=== PATIENT | female | born 1965 | race Caucasian/White ===

== ENCOUNTER 2018-09-07 17:50 | Emergency (ER) | payer MEDICARE, OTHER ==
[~2018-09-07] VITALS: Ht 157.5 cm; Wt 87.5 kg
[2018-09-07] MEDS ORDERED: LOVASTATIN20 MG PO (18:05)
[2018-09-07] MEDS ORDERED: METFORMIN HCL1000 MG PO (18:05)
[2018-09-07] MEDS ORDERED: DIVALPROEX SOD125 MG PO (18:06)
[2018-09-07] MEDS ORDERED: ESCITALOPRAM OXA5 MG PO (18:06)
[2018-09-07] MEDS ORDERED: LISINOPRIL10 MG PO (18:06)
[2018-09-07] MEDS ORDERED: OMEPRAZOLE40 MG PO (18:07)
[2018-09-07] MEDS ORDERED: METOPROLOL SUCC25 MG PO (18:07)
[2018-09-07] MEDS ORDERED: PREDNISONE20 MG PO (23:09)
== END 2018-09-07 23:26 | disposition home or self-care (01) ==
LOC: ED 17:50
DX: R22.0 Localized swelling, mass and lump, head (principal); R51 Headache; F43.10 Post-traumatic stress disorder, unspecified; E11.9 Type 2 diabetes mellitus without complications; F41.9 Anxiety disorder, unspecified; I25.2 Old myocardial infarction; I12.9 Hypertensive chronic kidney disease with stage 1 through stage 4 chronic kidney disease, or unspecified chronic kidney disease; N18.9 Chronic kidney disease, unspecified; K21.9 Gastro-esophageal reflux disease without esophagitis; F17.200 Nicotine dependence, unspecified, uncomplicated; Z88.0 Allergy status to penicillin; Z88.8 Allergy status to other drugs, medicaments and biological substances; Z91.048 Other nonmedicinal substance allergy status; Z88.6 Allergy status to analgesic agent; Z88.5 Allergy status to narcotic agent; Z79.899 Other long term (current) drug therapy; Z79.84 Long term (current) use of oral hypoglycemic drugs
CPT/HCPCS: 70450; 70496; 70498; 80053; 80164; 85025; 85610; 85730; 99284-25; J7512; Q9967

== ENCOUNTER 2018-12-24 12:07 | Emergency (ER) | payer MEDICARE ==
[~2018-12-24] VITALS: Ht 157.5 cm; Wt 87.5 kg
--- OUTSIDE RECORDS SUMMARY | ~2018-12-24 | XMS | Clinical Summary ---
Demographics + + + | Address | [address] | | | [place] [address] | + + + | Home Phone | | + + + | Preferred Language | Unknown | + + + | Marital Status | Unknown | + + + | Yazidism Affiliation | Unknown | + + + | Race | Unknown | + + + | Ethnic Group | Unknown | + + + Author + + + | Author | [facility] | + + + | Organization | [facility] | + + + | Address | Unknown | + + + | Phone | Unavailable | + + + Care Team Providers + +------+ + | Care Vp Talent Management Name | Role | Phone | + +------+ + | Gretel Cheema MD | PP | | + +------+ + Allergies Not on File Current Medications Not on file Active Problems Not on file Encounters +--------+ + + + + | Date | Type | Specialty | Care Team | Description | +--------+ + + + + | 10/13/ | Documentati | | Jose Alfredo Kendrajhon | Other ([facility] | | 2019 | on Only | | Neuroscience | Neurology records | | | | | | recv'd) | +--------+ + + + + | 10/08/ | Documentati | | Susanna Tracy, | | | 2018 | on Only | | MD | | +--------+ + + + + from Last 3 Months Social History + +-------+ +--------+------+ | Tobacco [...] +------+-------+ + | MEDICARE | MEDICA | [id number] | | | [address] | | | RE | | | | [place] [address] | | | IP-OP | | | | | + +--------+ +------+-------+ + | MEDICAID | MEDICA | [id number] | | | [address] | | | ID | | | | [place] | | | [place] | | | | [address] | + +--------+ +------+-------+ + + +--------+ +--------+ + + | Guarantor Name | Accoun | Relation to | Date | Phone | Billing Address | | | t Type | Patient | of | | | | | | | | | | + +--------+ +--------+ + + | JOSE ESCOBAR | Person | Self | [birth year] | Home: | [address] | | | al/Fam | | 1966 | [phone] [place] [address] | | | guille | | | [phone] | | + +--------+ +--------+ + +"
--- OUTSIDE RECORDS SUMMARY | ~2018-12-24 | XMS | Encounter Summary ---
Demographics + + + | Address | [address] | | | [place] [address] | + + + | Home Phone | | + + + | Preferred Language | Unknown | + + + | Marital Status | Unknown | + + + | Roman Catholic Affiliation | Unknown | + + + | Race | Unknown | + + + | Ethnic Group | Unknown | + + + Author + + + | Author | [facility] | + + + | Organization | [facility] | + + + | Address | Unknown | + + + | Phone | Unavailable | + + + Care Team Providers + +------+ + | Care Wheelchair Driver Name | Role | Phone | + +------+ + | Gretel Cheema MD | PCP | | + +------+ + Encounter Details +--------+ + + + + | Date | Type | Department | Care Team | Description | +--------+ + + + + | 10/08/ | Documentati | [facility] | Susanna Tracy, | | | 2019 | on Only | [facility] Center | [address] | | | | | [address] | [address] [place] | | | | | [place] | [address] | | | | | [address] | | | | | | [phone] | | | +--------+ + + + + Social History + +-------+ +--------+------+ | Tobacco [...] on file | | + + + as of this encounter Progress Notes Elvie Cottrell - 10/08/2018 11:30 AM PSTNeurology referralin this encounter Plan of Treatment Not on fileas of this encounter Visit Diagnoses Not on filein this encounter"
--- OUTSIDE RECORDS SUMMARY | ~2018-12-24 | XMS | Encounter Summary ---
Demographics + + + | Address | [address] | | | [place] [address] | + + + | Home Phone | | + + + | Preferred Language | Unknown | + + + | Marital Status | | + + + | Gnosticist Affiliation | 1027 | + + + | Race | Unknown | + + + | Ethnic Group | Unknown | + + + Author + + + | Author | [facility] | | | and [place] | + + + | Organization | [facility] | | | and [place] | + + + | Address | Unknown | + + + | Phone | Unavailable | + + + Support + + + + + | Name | Relationship | Address | Phone | + + + + + | Susy Escobar | ECON | [address] | | | | | [place] | | | | | [address] | | + + + + + Care Team Providers + +------+ + | Care Wine Blender Name | Role | Phone | + +------+ + PCP | Unavailable | + +------+ + Encounter Details +--------+ + + + + | Date | Type | Department | Care Team | Description | +--------+ + + + + | 10/15/ | Imaging | [facility] | Provider, | | | 2019 | Exam | MED CTR EXTERNAL | MD [address]any [address] | | | | | IMAGING | [address] | | | | | [phone] | [place] [address] | | +--------+ + + + + [...] + + documented in this encounter Results CT Chest wo Contrast (10/15/2018 11:40 PST) [...] + documented in this encounter Visit Diagnoses Not on filedocumented in this encounter"
--- OUTSIDE RECORDS SUMMARY | ~2018-12-24 | XMS | Encounter Summary ---
Demographics + + + | Address | [address] | | | [place] [address] | + + + | Home Phone | | + + + | Preferred Language | Unknown | + + + | Marital Status | | + + + | Cheondoism Affiliation | 1027 | + + + | Race | Unknown | + + + | Ethnic Group | Unknown | + + + Author + + + | Author | [facility] | | | and [place] | + + + | Organization | [facility] | | | and [place] | + + + | Address | Unknown | + + + | Phone | Unavailable | + + + Support + + + + + | Name | Relationship | Address | Phone | + + + + + | Susy Escobar | ECON | [address] | | | | | [place] | | | | | [address] | | + + + + + Care Team Providers + +------+ + | Care Employment Representative Name | Role | Phone | + +------+ + | Gretel Cheema MD | PCP | | + +------+ + Encounter Details +--------+ + + + + | Date | Type | Department | Care Team | Description | +--------+ + + + + | 12/04/ | Hospital | [facility] | Gretel Cheema | Thyroid nodule | | 2019 | Encounter | MED CTR ULTRASOUND | MD K[address] | | | | | [address] | [place] | | | | | [place] | [place] | | | | | [address] | [address] | | | | | [phone] | [phone] | | | | | | | [...] Destin Cedeno MD PATIENT NAME: JOSE ESCOBAR [facility] | | JASVIR GENDER: Ester : [...] nodule, colloid nodule etc.) | | | ([place] category 2) DESCRIPTION: More than six well [...] | LABORATORY: Technical preparation was performed by [facility] | | | [address] [place] [place] [address] and [facility] | | | Diagnostics, [place] [address] [place] [address]. | | | Professional interpretation was performed by [facility] - . | | | [facility] - [address] [place] [address] | | | (Superintendent Logging: Yariel Sanches MD.; IA#:[id number]).8 | | | Diagnostician: Toma NAVARRETE ([facility]) Channeling Machine Operator | | | Diagnostician: Yariel Sanches MD [...]
--- OUTSIDE RECORDS SUMMARY | ~2018-12-24 | XMS | Encounter Summary ---
Demographics + + + | Address | [address] | | | [place] [address] | + + + | Home Phone | | + + + | Preferred Language | Unknown | + + + | Marital Status | | + + + | Scientology Affiliation | 1027 | + + + | Race | Unknown | + + + | Ethnic Group | Unknown | + + + Author + + + | Author | [facility] | | | and [place] | + + + | Organization | [facility] | | | and [place] | + + + | Address | Unknown | + + + | Phone | Unavailable | + + + Support + + + + + | Name | Relationship | Address | Phone | + + + + + | Susy Escobar | ECON | [address] | | | | | [place] | | | | | [address] | | + + + + + Care Team Providers + +------+ + | Care Distributor Sales Consultant Name | Role | Phone | + +------+ + PCP | Unavailable | + +------+ + Encounter Details +--------+ + + + + | Date | Type | Department | Care Team | Description | +--------+ + + + + | 10/15/ | Imaging | [facility] | Provider, | | | 2019 | Exam | MED CTR EXTERNAL | MD [address] | | | | | IMAGING | [address] | | | | | [phone] | [place] [address] | | +--------+ + + + + [...] + documented in this encounter Results US Head Neck Soft Tissue (10/15/2018 12:10 [...]
--- OUTSIDE RECORDS SUMMARY | ~2018-12-24 | XMS | Encounter Summary ---
Demographics + + + | Address | [address] | | | [place] [address] | + + + | Home Phone | | + + + | Preferred Language | Unknown | + + + | Marital Status | Unknown | + + + | Islam Affiliation | Unknown | + + + | Race | Unknown | + + + | Ethnic Group | Unknown | + + + Author + + + | Author | [facility] | + + + | Organization | [facility] | + + + | Address | Unknown | + + + | Phone | Unavailable | + + + Care Team Providers + +------+ + | Care Lehr Tender Name | Role | Phone | + [...] [address] | | | | | [address] | [address] [place] | | | | | [place] | [address] | | | | | [address] | | | | | | [phone] | | | +--------+ + + + [...]
--- OUTSIDE RECORDS SUMMARY | ~2018-12-24 | XMS | Clinical Summary ---
Demographics + + + | Address | [address] | | | [place] [address] | + + + | Home Phone | | + + + | Preferred Language | Unknown | + + + | Marital Status | | + + + | Amish Affiliation | 1027 | + + + | Race | Unknown | + + + | Ethnic Group | Unknown | + + + Author + + + | Author | [facility] | | | and [place] | + + + | Organization | [facility] | | | and [place] | + + + | Address | Unknown | + + + | Phone | Unavailable | + + + Support + + + + + | Name | Relationship | Address | Phone | + + + + + | Susy Escobar | ECON | [address] | | | | | [place] | | | | | [address] | | + + + + + Care Team Providers + +------+ + | Care Painter Chassis Name | Role | Phone | + [...] + + | Performing | Address | City/State/[facility] | Phone Number | | Organization [...] Cedeno MD PATIENT NAME: JOSE ESCOBAR | [place] PATHOLOGY | | JASVIR GENDER: Ester : [...] nodule, colloid nodule etc.) | | | ([place] category 2) DESCRIPTION: More than six well [...] | LABORATORY: Technical preparation was performed by [facility] | | | [address] [place] [address] and [employer] | | | [facility] [address] [place] [address]. | | | Professional interpretation was performed by [facility]. | | | [place] [address] [place] [address] | | | (Side Puller: Yariel Sanches MD.; CLIA#:[id number]).8 | | | Diagnostician: Toma NAVARRETE ([facility]) Disability Attorney | | | Diagnostician: Yariel Sanches MD [...] +--------+ +---------+--------+ | MEDICARE | MEDICA | [id number] | 03/08/20 | [phone] | | Medica | | | RE | | 17-Pre | 5 | | re | | | PART A | | sent | | | | | | AND B | | | | | | + +--------+ +--------+ +---------+--------+ | MEDICAID [place] | MEDICA | [id number] | | [phone] | | Medica | [...] Person | Self | [birth year] | | [address] | | | verena/Yuriy | | 1966 | [phone] | [place] | | | guille | | | 7 ([place]) | [address] | + +--------+ +--------+ + + Advance Directives Patient has advance care planning documents on file. For more information, please contact:[facility] [place] [address]"
--- OUTSIDE RECORDS SUMMARY | ~2018-12-24 | XMS | Encounter Summary ---
Demographics + + + | Address | [address] | | | [place] [address] | + + + | Home Phone | | + + + | Preferred Language | Unknown | + + + | Marital Status | | + + + | Restorationism Affiliation | 1027 | + + + | Race | Unknown | + + + | Ethnic Group | Unknown | + + + Author + + + | Author | [facility] | | | and [place] | + + + | Organization | [facility] | | | and [place] | + + + | Address | Unknown | + + + | Phone | Unavailable | + + + Support + + + + + | Name | Relationship | Address | Phone | + + + + + | Susy Escobar | ECON | [address] | | | | | [place] | | | | | [address] | | + + + + + Care Team Providers + +------+ + | Care Scalloper Name | Role | Phone | + +------+ + PCP | Unavailable | + +------+ + Encounter Details +--------+ + + + + | Date | Type | Department | Care Team | Description | +--------+ + + + + | 10/15/ | Imaging | [facility] | Provider, | | | 2019 | Exam | MED CTR EXTERNAL | MD [address] | | | | | IMAGING | [address] | | | | | [phone] | [place] [address] | | +--------+ + + + + [...]
--- OUTSIDE RECORDS SUMMARY | ~2018-12-24 | XMS | Clinical Summary ---
Demographics + + + | Address | [address] | | | [place] [address] | + + + | Home Phone | | + + + | Preferred Language | Unknown | + + + | Marital Status | | + + + | Orthodoxy Affiliation | Unknown | + + + | Race | White | + + + | Ethnic Group | Not or | + + + Author + + + | Author | [facility] | + + + | Organization | [...] Team Providers + +------+ + | Care Athletic Events Scorer Name | Role | Phone | + +------+ + | Jese Simms | PP | Unavailable | | ASSISTANT PROFESSOR OF HISTORY | | | + +------+ + Source Comments [facility] is fully live on both EpicCare Ambulatory and EpicCare InPatient.[facility] Allergies + + + + + + [...] (Flu) | | | | | vaccination (#1) | 8 | | | + + + + + Results Not on filefrom Last 3 Months"
--- OUTSIDE RECORDS SUMMARY | ~2018-12-24 | XMS | Encounter Summary ---
Demographics + + + | Address | [address] | | | [place] [address] | + + + | Home Phone | | + + + | Preferred Language | Unknown | + + + | Marital Status | | + + + | Islam Affiliation | 1027 | + + + | Race | Unknown | + + + | Ethnic Group | Unknown | + + + Author + + + | Author | [facility] | | | and [place] | + + + | Organization | [facility] | | | and [place] | + + + | Address | Unknown | + + + | Phone | Unavailable | + + + Support + + + + + | Name | Relationship | Address | Phone | + + + + + | Susy Escobar | ECON | [address] | | | | | [place] | | | | | [address] | | + + + + + Care Team Providers + +------+ + | Care Radio Interference Expert Name | Role | Phone | + +------+ + | Gretel Cheema MD | PCP | | + +------+ + Encounter Details +--------+ + + + + | Date | Type | Department | Care Team | Description | +--------+ + + + + | 12/04/ | Hospital | [facility] | Gretel Cheema | Thyroid nodule | | 2019 | Encounter | MED CTR ULTRASOUND | MD [address] | | | | | [address] | [address] [place] | | | | | [place] [address] | [place] | | | | | [address] | [address] | | | | | [phone] | [phone] | | | | | | | [...] Destin Cedeno MD PATIENT NAME: JOSE ESCOBAR [facility] PATHOLOGY | | JASVIR GENDER: Ester : [...] nodule, colloid nodule etc.) | | | ([place] category 2) DESCRIPTION: More than six well [...] | LABORATORY: Technical preparation was performed by [facility] | | | [address] [place] [address] and [employer] | | | Diagnostics, [place] [address] [place] [address]. | | | Professional interpretation was performed by [facility] - . | | | [facility] - [address] [place] [address] | | | (Toe Pounder: Yariel Sanches MD.; IA#:[id number]).8 | | | Diagnostician: Toma NAVARRETE ([facility]) Filter Plant Operator | | | Diagnostician: Yariel Sanches [...]
--- OUTSIDE RECORDS SUMMARY | ~2018-12-24 | XMS | Encounter Summary ---
Demographics + + + | Address | [address] | | | [place] [address] | + + + | Home Phone | | + + + | Preferred Language | Unknown | + + + | Marital Status | | + + + | Sikh Affiliation | 1027 | + + + | Race | Unknown | + + + | Ethnic Group | Unknown | + + + Author + + + | Author | [facility] | | | and [place] | + + + | Organization | [facility] | | | and [place] | + + + | Address | Unknown | + + + | Phone | Unavailable | + + + Support + + + + + | Name | Relationship | Address | Phone | + + + + + | Susy Escobar | ECON | [address] | | | | | [place] | | | | | [address] | | + + + + + Care Team Providers + +------+ + | Care Enterer Name | Role | Phone | + +------+ + PCP | Unavailable | + +------+ + Encounter Details +--------+ + + + + | Date | Type | Department | Care Team | Description | +--------+ + + + + | 10/15/ | Imaging | [facility] | Provider, | | | 2019 | Exam | MED CTR EXTERNAL | MD [address] | | | | | IMAGING | [address] | | | | | [phone] | [place] [address] | | +--------+ + + + + [...]
--- OUTSIDE RECORDS SUMMARY | ~2018-12-24 | XMS | Clinical Summary ---
Demographics + + + | Address | [address] | | | [place] [address] | + + + | Home Phone | | + + + | Preferred Language | Unknown | + + + | Marital Status | | + + + | Roman Catholic Affiliation | 1027 | + + + | Race | Unknown | + + + | Ethnic Group | Unknown | + + + Author + + + | Author | [facility] | | | and [place] | + + + | Organization | [facility] | | | and [place] | + + + | Address | Unknown | + + + | Phone | Unavailable | + + + Support + + + + + | Name | Relationship | Address | Phone | + + + + + | Susy Escobar | ECON | [address] | | | | | [place] | | | | | [address] | | + + + + + Care Team Providers + +------+ + | Care Installment Account Checker Name | Role | Phone | + [...] + + | Performing | Address | City/State/[facility] | Phone Number | | Organization | [...] Cedeno MD PATIENT NAME: JOSE ESCOBAR | [place] [facility] | | JASVIR GENDER: Ester : [...] nodule, colloid nodule etc.) | | | ([place] category 2) DESCRIPTION: More than six well [...] | LABORATORY: Technical preparation was performed by [employer] [facility] | | | [address] [place] [address] and [employer] | | | [facility] [address] [place] [address]. | | | Professional interpretation was performed by [facility]. | | | [place] [address] [place] [address] | | | (Screw Machine Operator: Yariel Sanches MD.; CLIA#:[id number]).8 | | | Diagnostician: Toma NAVARRETE ([facility]) Geospatial Analyst | | | Diagnostician: Yariel Sanches MD [...] +--------+ +---------+--------+ | MEDICARE | MEDICA | [id number] | 03/08/20 | [phone] | | Medica | | | RE | | 17-Pre | 5 | | re | | | PART A | | sent | | | | | | AND B | | | | | | + +--------+ +--------+ +---------+--------+ | MEDICAID [place] | MEDICA | [id number] | | [phone] | | Medica | [...] Person | Self | [birth year] | | [address] | | | verena/Yuriy | | 1966 | [phone] | [place] | | | guille | | | 7 ([place]) | [address] | + +--------+ +--------+ + + Advance Directives Patient has advance care planning documents on file. For more information, please contact:[facility] [place] [address]"
--- OUTSIDE RECORDS SUMMARY | ~2018-12-24 | XMS | Clinical Summary ---
Demographics + + + | Address | [address] | | | [place] [address] | + + + | Home Phone | | + + + | Preferred Language | Unknown | + + + | Marital Status | Unknown | + + + | Orthodox Affiliation | Unknown | + + + | Race | Unknown | + + + | Ethnic Group | Unknown | + + + Author + + + | Author | [facility] [employer] | + + + | Organization | [facility] | + + + | Address | Unknown | + + + | Phone | Unavailable | + + + Care Team Providers + +------+ + | Care Brush Washer Name | Role | Phone | + [...] | | Jose Alfredo Kendrajhon | Other ([facility] | | 2019 | on Only | [...] +------+-------+ + | MEDICARE | MEDICA | [id number] | | | [address] | | | RE | | | | [place] [phone] | | | IP-OP | | | | | + +--------+ +------+-------+ + | MEDICAID | MEDICA | [id number] | | | [address] | | | ID | | | | [place] | | | [place] | | | | [address] | + +--------+ +------+-------+ + + +--------+ +--------+ + + | Guarantor Name | Accoun | Relation to | Date | Phone | Billing Address | | | t Type | Patient | of | | | | | | | | | | + +--------+ +--------+ + + | JOSE ESCOBAR | Person | Self | [birth year] | Home: | [address] | | | al/Fam | | 1966 | [phone] | [place] [address] | | | guille | | | [phone] | | + +--------+ +--------+ + +"
--- OUTSIDE RECORDS SUMMARY | ~2018-12-24 | XMS | Encounter Summary ---
Demographics + + + | Address | [address] | | | [place] [address] | + + + | Home Phone | | + + + | Preferred Language | Unknown | + + + | Marital Status | Unknown | + + + | Quaker Affiliation | Unknown | + + + | Race | Unknown | + + + | Ethnic Group | Unknown | + + + Author + + + | Author | [facility] | + + + | Organization | [facility] | + + + | Address | Unknown | + + + | Phone | Unavailable | + + + Care Team Providers + +------+ + | Care Show Worker Name | Role | Phone | + +------+ + | Gretel Cheema MD | PCP | | + +------+ + Reason for Visit +--------+ + | Reason | Comments | +--------+ + | Other | [facility] Neurology records recv'd | +--------+ + Encounter Details +--------+ + + + + | Date | Type | Department | Care Team | Description | +--------+ + + + + | 10/13/ | Documentati | Hattie | [place]attie | Other ([facility] | | 2019 | on Only | Neuroscience Center | Neuroscience 1100 | Neurology records | | | | [address] | [address] | recv'd) | | | | [place] [place], [place] | [place] [address] | | | | | [address] | [phone] | | | | | [phone] | | | +--------+ + + + [...] + as of this encounter Progress Notes Leyla Rome, CHIP UNLOADER - 10/13/2018 12:48 PM PSTRecords received gave to provider for rev iew and will send to scan when done.in this encounter Plan of Treatment Not on fileas of this encounter Visit Diagnoses Not on filein this encounter"
--- OUTSIDE RECORDS SUMMARY | ~2018-12-24 | XMS | Encounter Summary ---
Demographics + + + | Address | [address] | | | [place] [address] | + + + | Home Phone | | + + + | Preferred Language | Unknown | + + + | Marital Status | Unknown | + + + | Restoration Affiliation | Unknown | + + + | Race | Unknown | + + + | Ethnic Group | Unknown | + + + Author + + + | Author | [facility] | + + + | Organization | [facility] | + + + | Address | Unknown | + + + | Phone | Unavailable | + + + Care Team Providers + +------+ + | Care Ehr Trainer Name | Role | Phone | + +------+ + | Gretel Cheema MD | PCP | | + +------+ + Reason for Visit +--------+ + | Reason | Comments | +--------+ + | Other | [facility] Neurology records recv'd | +--------+ + Encounter Details +--------+ + + + + | Date | Type | Department | Care Team | Description | +--------+ + + + + | 10/13/ | Documentati | Hattie | [place] | Other ([facility] | | 2019 | on Only | Neuroscience Center | Neuroscience [address] | Neurology records | | | | [address] | [address] | recv'd) | | | | [address] [place], [place] | [place] [address] | | | | | [address] | [phone] | | | | | [phone] | | | +--------+ + + + [...] of this encounter Progress Notes Leyla Rome, DISTRICT CUSTOMS DIRECTOR - 10/13/2018 12:48 PM PSTRecords received gave to provider for rev iew and will send to scan when done.in this encounter Plan of Treatment Not on fileas of this encounter Visit Diagnoses Not on filein this encounter"
--- OUTSIDE RECORDS SUMMARY | ~2018-12-24 | XMS | Clinical Summary ---
Demographics + + + | Address | [address] | | | [place] [address] | + + + | Home Phone | | + + + | Preferred Language | Unknown | + + + | Marital Status | | + + + | Scientology Affiliation | Unknown | + + + | Race | White | + + + | Ethnic Group | Not or | + + + Author + + + | Author | [facility] | + + + | Organization | [...] Team Providers + +------+ + | Care Inspector Golf Ball Name | Role | Phone | + +------+ + | Jese Simms | PP | Unavailable | | BASIC SCIENCES DEAN | | | + +------+ + Source Comments ERUM is fully live on both EpicCare Ambulatory and EpicCare InPatient.[facility] Allergies + + + + + [...]
[~2018-12-24 12:07] MED LIST: DIVALPROEX SOD125 MG PO; ESCITALOPRAM OXA5 MG PO; LISINOPRIL10 MG PO; LOVASTATIN20 MG PO; METFORMIN HCL1000 MG PO; METOPROLOL SUCC25 MG PO; OMEPRAZOLE40 MG PO; PREDNISONE20 MG PO
[2018-12-24] MEDS ORDERED: NICOTINE GUM4 MG BUCCAL (13:01)
[2018-12-24] MEDS ORDERED: NORCO 5-325 TA1 EACH PO (14:07)
== END 2018-12-24 14:23 | disposition home or self-care (01) ==
LOC: ED 12:07
DX: S82.832A Other fracture of upper and lower end of left fibula, initial encounter for closed fracture (principal); S93.601A Unspecified sprain of right foot, initial encounter; F43.10 Post-traumatic stress disorder, unspecified; F41.9 Anxiety disorder, unspecified; I25.2 Old myocardial infarction; K21.9 Gastro-esophageal reflux disease without esophagitis; J45.909 Unspecified asthma, uncomplicated; F31.9 Bipolar disorder, unspecified; I12.9 Hypertensive chronic kidney disease with stage 1 through stage 4 chronic kidney disease, or unspecified chronic kidney disease; N18.9 Chronic kidney disease, unspecified; E11.22 Type 2 diabetes mellitus with diabetic chronic kidney disease; F17.200 Nicotine dependence, unspecified, uncomplicated; Z90.710 Acquired absence of both cervix and uterus; Z90.49 Acquired absence of other specified parts of digestive tract; Z88.0 Allergy status to penicillin; Z88.6 Allergy status to analgesic agent; Z88.1 Allergy status to other antibiotic agents; Z88.8 Allergy status to other drugs, medicaments and biological substances; Z91.09 Other allergy status, other than to drugs and biological substances; Z88.5 Allergy status to narcotic agent; Z79.84 Long term (current) use of oral hypoglycemic drugs; W18.31XA Fall on same level due to stepping on an object, initial encounter
CPT/HCPCS: 73590; 73610; 73630; 99283-25; 99406

== ENCOUNTER → 2019-01-11 | Emergency (ER) | payer MEDICARE ==
[~2019-01-11] VITALS: Ht 157.5 cm; Wt 87.5 kg
[~2019-01-11] MED LIST changes: +NICOTINE GUM4 MG BUCCAL; +NORCO 5-325 TA1 EACH PO
--- OUTSIDE RECORDS SUMMARY | ~2019-01-11 | XMS | Clinical Summary ---
Demographics + + + | Address | [address] | | | [place] [address] | + + + | Home Phone | | + + + | Preferred Language | Unknown | + + + | Marital Status | Unknown | + + + | Caodaism Affiliation | Unknown | + + + | Race | Unknown | + + + | Ethnic Group | Unknown | + + + Author + + + | Author | [facility] | + + + | Organization | [facility] | + + + | Address | Unknown | + + + | Phone | Unavailable | + + + Care Team Providers + +------+ + | Care Community Health Nursing Director Name | Role | Phone | + +------+ + | Gretel Cheema MD | PP | | + +------+ + Allergies Not on File Current Medications Not on file Active Problems Not on file Social History + +-------+ +--------+------+ | Tobacco Use | Types | Packs/Day | Years | Date | | | | | Used | | + +-------+ +--------+------+ | Never Assessed | | | | | + +-------+ +--------+------+ + + + | Sex Assigned at | Date Recorded | | | | + + + | Not on file | | + + + Plan of Treatment + + + + + | Health Maintenance | Due Date | Last Done | Comments | + + + + + | Cervical Cancer | | | | | Screening (Pap) | 4 | | | + + + + + | Vaccine: Zoster (1 | | | | | of 2) | 4 | | | + + + + + | Vaccine: Influenza | | | | | (Season Ended) | 9 | | | + + + + + | Vaccine: | | 08/16/2014 | | | Dtap/Tdap/Td (2 - | 4 | | | | Td) | | | | + + + + + Results Not on filefrom Last 3 Months Insurance + +--------+ +------+-------+ + | Payer | Benefi | Subscriber | Type | Phone | Address | | | t Plan | ID | | | | | | / | | | | | | | Group | | | | | + +--------+ +------+-------+ + | MEDICARE | MEDICA | [id number] | | | [address] | | | RE | | | | [place] [phone] | | | IP-OP | | | | | + +--------+ +------+-------+ + | MEDICAID | MEDICA | [id number] | | | [address] | | | ID | | | | [place] | | | [place] | | | | [phone] | + +--------+ +------+-------+ + + +--------+ +--------+ + + | Guarantor Name | Accoun | Relation to | Date | Phone | Billing Address | | | t Type | Patient | of | | | | | | | | | | + +--------+ +--------+ + + | JOSE ESCOBAR | Person | Self | [birth year] | Home: | [address] | | | verena/Yuriy | | 1966 | [phone] [place] [address] | | | guille | | | [phone] | | + +--------+ +--------+ + +"
--- OUTSIDE RECORDS SUMMARY | ~2019-01-11 | XMS | Encounter Summary ---
Demographics + + + | Address | [address] | | | [place] [address] | + + + | Home Phone | | + + + | Preferred Language | Unknown | + + + | Marital Status | | + + + | Restorationist Affiliation | 1027 | + + + | Race | Unknown | + + + | Ethnic Group | Unknown | + + + Author + + + | Author | [facility] | | | and [place] | + + + | Organization | [facility] | | | and [place] | + + + | Address | Unknown | + + + | Phone | Unavailable | + + + Support + + + + + | Name | Relationship | Address | Phone | + + + + + | Susy Escobar | ECON | [address] | | | | | [place] | | | | | [address] | | + + + + + Care Team Providers + +------+ + | Care County Agent Name | Role | Phone | + +------+ + | Gretel Cheema MD | PCP | | + +------+ + Encounter Details +--------+ + + + + | Date | Type | Department | Care Team | Description | +--------+ + + + + | 12/04/ | Hospital | [facility] | Gretel Cheema | Thyroid nodule | | 2019 | Encounter | MED CTR ULTRASOUND | MD [address] | | | | | [address] | [place] | | | | | [place] | [place] | | | | | [address] | [address] | | | | | [phone] | [phone] | | | | | | | | | | | | Rad, [facility] | | +--------+ + + + + [...] on file | | + + + + + + + | Job Start Date | Occupation | Industry | + + + + | Not on file | Not on file | Not on file | + + + + + + + + | Travel History | Travel Start | Travel End | + + + + + + | No recent travel history available. | + + documented as of this encounter Plan of Treatment Not on filedocumented as of this encounter Procedures + +--------+ + + + | Procedure Name | Priori | Date/Time | Associated Diagnosis | Comments | | | ty | | | | + +--------+ + + + | US GUIDED THYROID | Routin | 12/04/2018 | Thyroid nodule | Results for this | | FNA | e | 15:33 PDT | | procedure are in the | | | | | | results section. | + +--------+ + + + | MEDICAL CYTOLOGY | Routin | 12/04/2018 | | Results for this | | | e | 0:00 PDT | | procedure are in the | | | | | | results section. | + +--------+ + + + documented in this encounter Results US Guided Thyroid FNA (12/04/2018 15:33 PDT) + + | Specimen | + + | | + + + + + | Narrative | Performed At | + + + | US GUIDED THYROID FNA 12/04/2018 1:00 PM HISTORY: THYROID NODULE. | [facility] | | COMPARISON: Bilateral ultrasound 10/15/2018. PROTOCOL: After | | | explaining the risks and benefits of the procedure, informed consent | | | was obtained from the patient. Risks discussed included bleeding and | | | infection. Under ultrasound guidance, the dominant left inferior | | | nodule was localized. This region was cleansed and draped in the | | | usual sterile fashion. Lidocaine was used for local anesthesia. Using | | | 25-gauge 1.5 inch needles, biopsy was performed with 3 passes. The | | | samples were injected into CytoLyt solution. IMPRESSION - | | | Successful ultrasound-guided thyroid nodule biopsy. Dictated and | | | Signed by: Destin Cedeno MD Electronically signed: 12/04/2018 1:50 | | | PM | | + + + + + | Procedure Note | + + | Henry, Rad Results In - 12/04/2018 1534 PDT US GUIDED THYROID FNA 12/04/2018 1:00 PM | | | | HISTORY: THYROID NODULE. | | | | COMPARISON: Bilateral ultrasound 10/15/2018. | | | | PROTOCOL: | | After explaining the risks and benefits of the procedure, informed consent was | | obtained from the patient. Risks discussed included bleeding and infection. | | Under ultrasound guidance, the dominant left inferior nodule was localized. This | | region was cleansed and draped in the usual sterile fashion. Lidocaine was used | | for local anesthesia. Using 25-gauge 1.5 inch needles, biopsy was performed with | | 3 passes. The samples were injected into CytoLyt solution. | | | | IMPRESSION - | | Successful ultrasound-guided thyroid nodule biopsy. | | | | Dictated and Signed by: Destin Cedeno MD | | Electronically signed: 12/04/2018 1:50 PM | + + + +---------+ + + | Performing | Address | City/State/Zipcode | Phone Number | | Organization | | | | + +---------+ + + | [facility] | | | | + +---------+ + + Medical Cytology (12/04/2018 0:00 PDT) + + | Specimen | + + | Tissue | + + + + + | Narrative | Performed At | + + + | ORDERING PHYSICIAN: Destin Cedeno MD PATIENT NAME: JOSE ESCOBAR [facility] | | JASVIR GENDER: Ester : 1965 SPECIMEN(S): A | [facility] | | NBX, LEFT THYROID GROSS DESCRIPTION: 10 ML OF CLEAR, COLORLESS | | | FLUID CLINICAL HISTORY: NO CLINICAL DATA PROVIDED | | | LABORATORY PREPARATIONS: 1 MONOLAYER CYTOLOGIC INTERPRETATION: | | | Left Thyroid needle sampling: Benign - Consistent with a benign | | | follicular nodule (includes adenomatoid nodule, colloid nodule etc.) | | | ([place] category 2) DESCRIPTION: More than six well preserved | | | groups of thyroid follicular cells are present and the findings | | | comprise an adequately cellular specimen. Colloid is abundant. Nuclear | | | features of papillary carcinoma are not identified and follicular | | | cells do not appear abnormal. No atypical features are seen. | | | SPECIMEN ADEQUACY: Satisfactory for Evaluation PERFORMING | | | LABORATORY: Technical preparation was performed by [facility] | | | [address] [place] [address] and [facility] | | | [facility], [place] [address] [place] [address]. | | | Professional interpretation was performed by [facility] - . | | | [facility] - [address] [place] [address] | | | (Muffler Hand: Yariel Sanches MD.; IA#:[id number]).8 | | | Diagnostician: Toma NAVARRETE ([facility]) Center Director | | | Diagnostician: Yariel Sanches MD Pathologist | | | Electronically Signed 12/07/2018 | | + + + + +---------+ + + | Performing | Address | City/State/Zipcode | Phone Number | | Organization | | | | + +---------+ + + | [facility] | | | | | [place] | | | | + +---------+ + + documented in this encounter Visit Diagnoses + + | Diagnosis | + + | Thyroid nodule Nontoxic uninodular goiter | + + documented in this encounter"
--- OUTSIDE RECORDS SUMMARY | ~2019-01-11 | XMS | Clinical Summary ---
Demographics + + + | Address | [address] | | | [place] [address] | + + + | Home Phone | | + + + | Preferred Language | Unknown | + + + | Marital Status | | + + + | Anglican Affiliation | 1027 | + + + | Race | Unknown | + + + | Ethnic Group | Unknown | + + + Author + + + | Author | [facility] | | | and [place] | + + + | Organization | [facility] | | | and [place] | + + + | Address | Unknown | + + + | Phone | Unavailable | + + + Support + + + + + | Name | Relationship | Address | Phone | + + + + + | Susy Escobar | ECON | [address] | | | | | [place] | | | | | [address] | | + + + + + Care Team Providers + +------+ + | Care Health Program Analyst Name | Role | Phone | + +------+ + | Gretel Cheema MD | PP | | + +------+ + Allergies No Known Allergies Medications Not on file Active Problems Not on file Encounters +--------+ + + + + | Date | Type | Specialty | Care Team | Description | +--------+ + + + + | 12/04/ | Hospital | | Gretel Cheema | Thyroid nodule | | 2019 | Encounter | | MD [facility] | | | | | | [facility] | | +--------+ + + + + | 10/15/ | Imaging | | Provider, | | | 2018 | Exam | | Historical, MD | | +--------+ + + + + | 10/15/ | Imaging | | Provider, | | | 2018 | Exam | | Historical, MD | | +--------+ + + + [...] recent travel history available. | + + Plan of Treatment + + [...] | | + + + + + Procedures + +--------+ + + + | [...] + +--------+ + + + | US HEAD NECK SOFT | Routin | 10/15/2018 | | Results for this | | TISSUE | e | 12:10 PST | | procedure are in the | | | | | | results section. | + +--------+ + + + | CT CHEST WO CONTRAST | Routin | 10/15/2018 | | Results for this | | | e | 11:40 PST | | procedure are in the | | | | | | results section. | + +--------+ + + + from Last 3 Months Results US Guided Thyroid FNA (12/04/2018 15:33 [...] + + | Performing | Address | City/State/[facility] | Phone Number | | Organization | [...] Destin Cedeno MD PATIENT NAME: JOSE ESCOBAR | [facility] | | JASVIR GENDER: Ester : [...] nodule, colloid nodule etc.) | | | ([place] category 2) DESCRIPTION: More than six well [...] | LABORATORY: Technical preparation was performed by [facility] | | | [address] [place] [address] and [facility] | | | [facility] [address] [place] [address]. | | | Professional interpretation was performed by [facility]. | | | [place] [address] [place] [address] | | | (Harvest Field Ticketer: Yariel Sanches MD.; CLIA#:[id number]).8 | | | Diagnostician: Toma NAVARRETE ([facility]) Plow Mechanic | | | Diagnostician: Yariel Sanches MD Pathologist | | | Electronically Signed 12/07/2018 | | + + + + +---------+ + + | Performing | Address | City/State/Zipcode | Phone Number | | Organization | | | | + +---------+ + + | [facility] | | | | | [place] | | | | + +---------+ + + US Head Neck Soft Tissue (10/15/2018 12:10 PST) + + | Specimen | + + | | + + + + + | Narrative | Performed At | + + + | External films for comparison only | [facility] | | | | | No results will be in the chart. | | + + + + +---------+ + + | Performing | Address | City/State/Zipcode | Phone Number | | Organization | | | | + +---------+ + + | [facility] | | | | + +---------+ + + CT Chest wo Contrast (10/15/2018 11:40 PST) + + | Specimen | + + | | + + + + + | Narrative | Performed At | + + + | External films for comparison only | [facility] | | | | | No results will be in the chart. | | + + + + +---------+ + + | Performing | Address | City/State/Zipcode | Phone Number | | Organization | | | | + +---------+ + + | [facility] | | | | + +---------+ + + from Last 3 Months Insurance + +--------+ +--------+ +---------+--------+ | Payer | Benefi | Subscriber | Effect | Phone | Address | Type | | | t Plan | ID | aubrie | | | | | | / | | Dates | | | | | | Group | | | | | | + +--------+ +--------+ +---------+--------+ | MEDICARE | MEDICA | [id number] | 03/08/20 | [phone] | | Medica | | | RE | | 17-Pre | 5 | | re | | | PART A | | sent | | | | | | AND B | | | | | | + +--------+ +--------+ +---------+--------+ | [place] | MEDICA | [id number] | | [phone] | | Medica | | | ID | | 019-Pr | 2 | | id | | | [place] | | esent | | | | + +--------+ +--------+ +---------+--------+ + +--------+ +--------+ + + | Guarantor Name | Accoun | Relation to | Date | Phone | Billing Address | | | t Type | Patient | of | | | | | | | | | | + +--------+ +--------+ + + | Jose Escobar | Person | Self [birth year] | [address] | | | verena/Yuriy | | 1966 | [phone] | [place] | | | guille | | | [address] ([place]) | [address] | + +--------+ +--------+ + + Advance Directives Patient has advance care planning documents on file. For more information, please contact:[facility] [place] [address]"
--- OUTSIDE RECORDS SUMMARY | ~2019-01-11 | XMS | Clinical Summary ---
Demographics + + + | Address | [address] | | | [place] [address] | + + + | Home Phone | | + + + | Preferred Language | Unknown | + + + | Marital Status | | + + + | Anabaptist Affiliation | Unknown | + + + | Race | White | + + + | Ethnic Group | Not or | + + + Author + + + | Author | [facility] | + + + | Organization | [facility] | + + + | Address | Unknown | + + + | Phone | Unavailable | + + + Support + + +---------+ + | Name | Relationship | Address | Phone | + + +---------+ + | Aziza Ghotra | ECON | Unknown | | + + +---------+ + Care Team Providers + +------+ + | Care Agriculture Intern Name | Role | Phone | + +------+ + | Jese Simms | PP | Unavailable | | GLASS MELT OPERATOR | | | + +------+ + Source Comments ERUM is fully live on both EpicCare Ambulatory and EpicCare InPatient.[facility] Allergies + + + + + + | Active Allergy | Reactions | Severity | Noted | Comments | | | | | Date | | + + + + + + | Adhesive Tape | | | 10/03/19 | RASH | | | | | 00 | | + + + + + + | Adhesive Tape | Hives | | 05/20/20 | | | | | | 14 | | + + + + + + | Amitriptyline | Unknown | | 05/20/20 | One pill caused pt | | | | | 14 | to sleep for 3 days | | | | | | as per pt | + + + + + + | Diphenhydramine Hcl | Hives | | 05/20/20 | | | | | | 14 | | + + + + + + | Antihistamines | | | 01/18/19 | HYPERACTIVITY | | | | | 92 | | + + + + + + | Desipramine | | | 01/18/19 | HIVES | | | | | 92 | | + + + + + + | Erythromycin | | | 10/03/19 | | | | | | 00 | | + + + + + + | Fish Oil | Hives | | 05/20/20 | hives | | | | | 14 | | + + + + + + | Influenza Virus | Unknown | | 05/20/20 | | | Vaccine Tvs | | | 14 | | | (18+) Cell Edy | | | | | + + + + + + | Ketorolac | Hives, Nausea and | | 05/20/20 | | | | Vomiting, Edema | | 14 | | + + + + + + | Morphine | | | 10/03/19 | | | | | | 00 | | + + + + + + | Oxycodone | Unknown | | 05/20/20 | | | | | | 14 | | + + + + + + | Penicillins | | | 10/03/19 | | | | | | 00 | | + + + + + + | Oxycodone-Acetaminop | Hives | | 05/20/20 | | | hen | | | 14 | | + + + + + + Current Medications + + +---------+---------+------+------+-------+ | Prescription | Sig. | Disp. | Refills | Star | End | Statu | | | | | | t | Date | s | | | | | | Date | | | + + +---------+---------+------+------+-------+ | metoprolol | Take 25 mg by mouth | | | | | Activ | | succinate 25 mg oral | once daily. | | | | | e | | tablet extended | | | | | | | | release 24 hr | | | | | | | + + +---------+---------+------+------+-------+ | FLUoxetine 20 mg | Take 20 mg by mouth | | | | | Activ | | oral tablet | two times daily. | | | | | e | + + +---------+---------+------+------+-------+ | | Take by mouth. | | | | | Activ | | HYDROcodone-acetamin | | | | | | e | | ophen 10-325 mg oral | | | | | | | | tablet | | | | | | | + + +---------+---------+------+------+-------+ | Ranitidine HCl 150 | Take by mouth. | | | | | Activ | | mg oral capsule | | | | | | e | + + +---------+---------+------+------+-------+ | | Take by mouth. | | | | | Activ | | lisinopril-hydrochlo | | | | | | e | | rothiazide 10-12.5 | | | | | | | | mg oral tablet | | | | | | | + + +---------+---------+------+------+-------+ | SUMAtriptan 100 mg | Take by mouth. | | | | | Activ | | oral tablet | | | | | | e | + + +---------+---------+------+------+-------+ | nitroglycerin 0.4 | Place under tongue. | | | | | Activ | | mg sublingual | | | | | | e | | tablet, sublingual | | | | | | | + + +---------+---------+------+------+-------+ | ondansetron ODT 4 | Take by mouth. | | | | | Activ | | mg oral | | | | | | e | | tablet,disintegratin | | | | | | | | g | | | | | | | + + +---------+---------+------+------+-------+ | multivitamin oral | Take by mouth. | | | | | Activ | | capsule | | | | | | e | + + +---------+---------+------+------+-------+ | indomethacin 25 mg | Take 1 capsule by | 90 | 3 | 11/1 | | Activ | | oral capsule | mouth three times | capsule | | 4/20 | | e | | | daily. 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 | + + + | Pain in or around eye | 05/23/2014 | + + + Social History + +-------+ +--------+------+ | Tobacco Use | Types | Packs/Day | Years | Date | | | | | Used | | + +-------+ +--------+------+ | Former Smoker | | | | | + +-------+ +--------+------+ + +---+---+---+ | Smokeless Tobacco: | | | | | Never Used | | | | + +---+---+---+ + + +---------+ + | Alcohol Use | Drinks/We | oz/Week | Comments | | | ek | | | + + +---------+ + | No | | | | + + +---------+ + + + + | Sex Assigned at | Date Recorded | | | | + + + | Not on file | | + + + Plan of Treatment + + + + + | Health Maintenance | Due Date | Last Done | Comments | + + + + + | Influenza (Flu) | | | | | vaccination (Season | 9 | | | | Ended) | | | | + + + + + Results Not on filefrom Last 3 Months"
--- OUTSIDE RECORDS SUMMARY | ~2019-01-11 | XMS | Encounter Summary ---
Demographics + + + | Address | [address] | | | [place] [address] | + + + | Home Phone | | + + + | Preferred Language | Unknown | + + + | Marital Status | | + + + | Presybeterian Affiliation | 1027 | + + + | Race | Unknown | + + + | Ethnic Group | Unknown | + + + Author + + + | Author | [facility] | | | and [place] | + + + | Organization | [facility] | | | and [place] | + + + | Address | Unknown | + + + | Phone | Unavailable | + + + Support + + + + + | Name | Relationship | Address | Phone | + + + + + | Susy Escobar | ECON | [address] | | | | | [place] | | | | | [address] | | + + + + + Care Team Providers + +------+ + | Care Deep Submergence Vehicle Crewmember Name | Role | Phone | + +------+ + PCP | Unavailable | + +------+ + Encounter Details +--------+ + + + + | Date | Type | Department | Care Team | Description | +--------+ + + + + | 10/15/ | Imaging | [facility] | Provider, | | | 2019 | Exam | [facility] | MD [address] | | | | | IMAGING | [address] | | | | | [phone] | [place] [address] | | +--------+ + + + + [...]
--- OUTSIDE RECORDS SUMMARY | ~2019-01-11 | XMS | Encounter Summary ---
Demographics + + + | Address | [address] | | | [place] [address] | + + + | Home Phone | | + + + | Preferred Language | Unknown | + + + | Marital Status | | + + + | Buddhist Affiliation | 1027 | + + + | Race | Unknown | + + + | Ethnic Group | Unknown | + + + Author + + + | Author | [facility] | | | and [place] | + + + | Organization | [facility] | | | and [place] | + + + | Address | Unknown | + + + | Phone | Unavailable | + + + Support + + + + + | Name | Relationship | Address | Phone | + + + + + | Susy Escobar | ECON | [address] | | | | | [place] | | | | | [address] | | + + + + + Care Team Providers + +------+ + | Care Motor Coach Supervisor Name | Role | Phone | + +------+ + PCP | Unavailable | + +------+ + Encounter Details +--------+ + + + + | Date | Type | Department | Care Team | Description | +--------+ + + + + | 10/15/ | Imaging | [facility] | Provider, | | | 2019 | Exam | [facility]TER[facility] | MD [id number] | | | | | IMAGING | [address] | | | | | [phone] | [place] [address] | | +--------+ + + + + [...]
== END ==
LOC: ED 17:14
DX: S82.832D Other fracture of upper and lower end of left fibula, subsequent encounter for closed fracture with routine healing (principal); F43.10 Post-traumatic stress disorder, unspecified; F41.9 Anxiety disorder, unspecified; I25.2 Old myocardial infarction; K21.9 Gastro-esophageal reflux disease without esophagitis; J45.909 Unspecified asthma, uncomplicated; F31.9 Bipolar disorder, unspecified; E11.22 Type 2 diabetes mellitus with diabetic chronic kidney disease; I12.9 Hypertensive chronic kidney disease with stage 1 through stage 4 chronic kidney disease, or unspecified chronic kidney disease; N18.9 Chronic kidney disease, unspecified; G47.30 Sleep apnea, unspecified; F17.200 Nicotine dependence, unspecified, uncomplicated; Z90.49 Acquired absence of other specified parts of digestive tract; Z88.0 Allergy status to penicillin; Z88.6 Allergy status to analgesic agent; Z88.1 Allergy status to other antibiotic agents; Z88.5 Allergy status to narcotic agent; Z91.09 Other allergy status, other than to drugs and biological substances; Z88.8 Allergy status to other drugs, medicaments and biological substances; Z79.84 Long term (current) use of oral hypoglycemic drugs; Z79.899 Other long term (current) drug therapy; X58.XXXD Exposure to other specified factors, subsequent encounter
CPT/HCPCS: 73610; 99283

== ENCOUNTER → 2020-02-16 | Emergency (ER) | payer MEDICARE, OTHER ==
[~2020-02-16] VITALS: Ht 157.5 cm; Wt 87.5 kg
[~2020-02-16] MED LIST changes: +VENTOLIN HFA18 GM INH
--- OUTSIDE RECORDS SUMMARY | 2020-02-16 15:46 | XMS ---
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 If patient is seen in the ED during business hours. Please contact [facility] at [facility]. Care Recommendation: This patient has had 5 or more Emergency Department visits in the last 12 months.\T\nbsp; Patient requires education on the scope and purpose of the ED as an acute care provider not a Primary Care Provider and should not be utilized for chronic conditions.\T\nbsp; These are guidelines and the provider should exercise clinical judgment when providing care. E.D. VISIT COUNT (12 MO.) 1 JOHN Pastor TOTAL 1 NOTE: Visits indicate total known visits. ED/UCC VISIT TRACKING (12 MO.) 02/16/2020 15:43 JOHN Blas [place] TYPE: Emergency COMPLAINT: - SOB INPATIENT VISIT TRACKING (12 MO.) No inpatient visits to display in this time frame [email or web address]
--- NOTE | 2020-02-17 11:08 | EKG ---
[facility] [address] [facility] [place], [place] [address] Signed Normal sinus rhythm Normal ECG No previous ECGs available Confirmed by ARLETTE QUISPE MD ([id number]) on 02/17/2020 11:08:20 AM Electronically Signed By: ARLETTE QUISPE MD 02/17/20 1108 PATIENT NAME: JOSE LADD Electrocardiogram DATE OF : 61 PHYSICIAN: ARLETTE QUISPE MD REPORT #: [id number] REPORT IS CONFIDENTIAL AND NOT TO BE RELEASED WITHOUT AUTHORIZATION
== END ==
LOC: ED 15:42
DX: R07.89 Other chest pain (principal); I10 Essential (primary) hypertension; E11.9 Type 2 diabetes mellitus without complications; I25.2 Old myocardial infarction; J45.909 Unspecified asthma, uncomplicated; F41.9 Anxiety disorder, unspecified; F31.9 Bipolar disorder, unspecified; K21.9 Gastro-esophageal reflux disease without esophagitis; G47.30 Sleep apnea, unspecified; F17.200 Nicotine dependence, unspecified, uncomplicated; Z88.0 Allergy status to penicillin; Z88.6 Allergy status to analgesic agent; Z91.048 Other nonmedicinal substance allergy status; Z88.1 Allergy status to other antibiotic agents; Z88.5 Allergy status to narcotic agent; Z88.8 Allergy status to other drugs, medicaments and biological substances; Z79.899 Other long term (current) drug therapy
CPT/HCPCS: 71046; 80053; 83735; 83880; 84484; 85025; 85379; 93005; 93010; 99285-25

== ENCOUNTER 2020-09-05 21:11 | Emergency (ER) | payer MEDICARE, OTHER ==
[~2020-09-05] VITALS: Ht 157.5 cm; Wt 87.5 kg
--- OUTSIDE RECORDS SUMMARY | 2020-09-05 21:14 | XMS ---
PreManage Notification: JOSE LADD Security Bike Technician Events No recent Security Events currently on file CRITERIA MET - [facility] Has Care Guidelines CARE PROVIDERS MELISSA RUSSELL Internal Medicine: Pulmonary Disease 12/25/2018-Current PHONE: Unknown [facility] 03/22/2018-Current PHONE: [phone] Guidelines [facility] Guidelines Date: 02/29/2020 Care Coordination: Member is currently not engaged in [employer] services. If Mental Health services are needed, please contact: Bharti [phone] [place]/ Aamir Cordoba [phone] Crisis Line [phone] Additional care guidelines exist for the following facilities: [facility] ( 03/15/2019 ) Care History Medical/Surgical 02/17/2020 [facility] Patient has follow up visit with Dr. Cheema on 02/21/2020. 12/25/2018 [facility] - Patient is currently established with [facility]. If patient is seen in the ED during business hours. Please contact CHWs at [facility]. Care Recommendation: This patient has had [...] providing care. E.D. VISIT COUNT (12 MO.) 2 [facility]. TOTAL 2 NOTE: Visits indicate total known visits. ED/UCC VISIT TRACKING (12 MO.) 09/05/2020 21:12 JOHN lBas [place] TYPE: Emergency COMPLAINT: - DIFFICULTY BREATHING 02/16/2020 15:43 JOHN Blas [place] TYPE: Emergency COMPLAINT: - SOB DIAGNOSES: - Other nonmedicinal substance allergy status - Allergy status to analgesic agent - Anxiety disorder, unspecified - Other chest pain - Unspecified asthma, uncomplicated - Allergy status to penicillin - Shortness of breath - Bipolar disorder, unspecified - Old myocardial infarction - Allergy status to other drugs, medicaments and biological substances - Allergy status to narcotic agent - Sleep apnea, unspecified - Type 2 diabetes mellitus without complications - Nicotine dependence, unspecified, uncomplicated - Essential (primary) hypertension - Other long-term (current) drug therapy - Allergy status to other antibiotic agents - Gastro-esophageal reflux disease without esophagitis INPATIENT VISIT TRACKING (12 MO.) No inpatient visits to display in this time frame [email or web address]
--- NOTE | 2020-09-06 21:13 | EKG ---
[facility] [address] [place] [address] Signed Normal sinus rhythm Normal ECG When compared with ECG of 16-FEB-2020 15:54, Nonspecific T wave abnormality no longer evident in Anterior leads Confirmed by HIMANSHU REEVES DO ([id number]) on 09/06/2020 9:13:36 PM Electronically Signed By: HIMANSHU REEVES DO 09/06/202112 PATIENT NAME: MARISOL LADDGeri STONERE Electrocardiogram DATE OF : 61 PHYSICIAN: HIMANSHU REEVES DO REPORT #: [id number] REPORT IS CONFIDENTIAL AND NOT TO BE RELEASED WITHOUT AUTHORIZATION
== END 2020-09-06 00:50 | disposition home or self-care (01) ==
LOC: ED 21:11
DX: R06.00 Dyspnea, unspecified (principal); Z20.828 Contact with and (suspected) exposure to other viral communicable diseases; E11.22 Type 2 diabetes mellitus with diabetic chronic kidney disease; I25.2 Old myocardial infarction; I12.9 Hypertensive chronic kidney disease with stage 1 through stage 4 chronic kidney disease, or unspecified chronic kidney disease; N18.9 Chronic kidney disease, unspecified; K21.9 Gastro-esophageal reflux disease without esophagitis; F17.200 Nicotine dependence, unspecified, uncomplicated; Z88.0 Allergy status to penicillin; Z88.8 Allergy status to other drugs, medicaments and biological substances; Z91.048 Other nonmedicinal substance allergy status; Z88.1 Allergy status to other antibiotic agents; Z88.5 Allergy status to narcotic agent; Z88.6 Allergy status to analgesic agent; Z79.899 Other long term (current) drug therapy; Z79.84 Long term (current) use of oral hypoglycemic drugs
CPT/HCPCS: 71045; 80053; 81001; 83735; 83880; 84484; 85025; 93005; 93010; 99285-25; C9803; U0003

== ENCOUNTER 2021-03-19 12:17 | Emergency (ER) | payer MEDICARE, OTHER ==
[~2021-03-19] VITALS: Ht 157.5 cm; Wt 87.5 kg
[2021-03-19] MEDS ORDERED: BUSPIRONE HCL10 MG PO (12:50)
[2021-03-19] MEDS ORDERED: DIVALPROEX SOD250 MG PO (12:50)
[2021-03-19] MEDS ORDERED: DULOXETINE HCL60 MG PO (12:50)
[2021-03-19] MEDS ORDERED: GABAPENTIN600 MG PO (12:51)
[2021-03-19] MEDS ORDERED: METOPROLOL SUCC50 MG PO (12:51)
[2021-03-19] MEDS ORDERED: TRAZODONE HCL100 MG PO (12:51)
[2021-03-19] MEDS ORDERED: CHLORTHALIDONE25 MG PO (12:51)
--- OUTSIDE RECORDS SUMMARY | 2021-03-19 14:02 | XMS ---
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 If Mental Health services are needed, please contact: Bharti [phone] [place]/ Aamir Cordoba [phone] [facility] Line [phone] Additional care guidelines exist for the following facilities: [facility] ( 03/15/2019 ) Care History Medical/Surgical 02/17/2020 [facility] Patient has follow up visit with Dr. Cheema on 02/21/2020. 12/25/2018 [facility] - Patient is currently established with [facility]. If patient is seen in the ED during business hours. Please contact CHWs at [facility]. Care Recommendation: This patient has had 5 [...] care. E.D. VISIT COUNT (12 MO.) 2 JOHN Pastor TOTAL 2 NOTE: Visits indicate total known visits. 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 - Allergy status to narcotic agent - Allergy status to other drugs, medicaments and biological substances - Allergy status to other antibiotic agents - Old myocardial infarction - Type 2 diabetes mellitus with diabetic chronic kidney disease - Dyspnea, unspecified - Other intermediate teacher (current) drug therapy - Hypertensive chronic kidney disease with stage 1 through stage 4 chronic kidney disease, or unspecified chronic kidney disease - Allergy status to other drugs, medicaments and biological substances - Other nonmedicinal substance allergy status - Allergy status to narcotic agent - Allergy status to other antibiotic agents - Shortness of breath INPATIENT VISIT TRACKING (12 MO.) No inpatient visits to display in this time frame [email or web address]
[2021-03-19] MEDS ORDERED: PERCOCET 7.5-31 EACH PO (16:37)
== END 2021-03-19 17:20 | disposition home or self-care (01) ==
LOC: ED 12:17
DX: S33.5XXA Sprain of ligaments of lumbar spine, initial encounter (principal); W22.8XXA Striking against or struck by other objects, initial encounter; E11.22 Type 2 diabetes mellitus with diabetic chronic kidney disease; I25.2 Old myocardial infarction; I12.9 Hypertensive chronic kidney disease with stage 1 through stage 4 chronic kidney disease, or unspecified chronic kidney disease; K21.9 Gastro-esophageal reflux disease without esophagitis; J45.909 Unspecified asthma, uncomplicated; N18.9 Chronic kidney disease, unspecified; G47.30 Sleep apnea, unspecified; F17.200 Nicotine dependence, unspecified, uncomplicated; Z88.0 Allergy status to penicillin; Z88.8 Allergy status to other drugs, medicaments and biological substances; Z91.040 Latex allergy status; Z88.7 Allergy status to serum and vaccine; Z88.1 Allergy status to other antibiotic agents; Z88.5 Allergy status to narcotic agent; Z79.899 Other long term (current) drug therapy; Z79.84 Long term (current) use of oral hypoglycemic drugs
CPT/HCPCS: 72100; 99283-25; A9270

== ENCOUNTER 2021-07-25 06:50 | Day surgery (SDC) | payer MEDICARE, OTHER ==
[~2021-07-25] VITALS: Ht 157.5 cm; Wt 95.0 kg
[~2021-07-25 06:50] MED LIST changes: +BUSPIRONE HCL10 MG PO; +CHLORTHALIDONE25 MG PO; +DIVALPROEX SOD250 MG PO; +DULOXETINE HCL60 MG PO; +GABAPENTIN600 MG PO; +METOPROLOL SUCC50 MG PO; +PERCOCET 7.5-31 EACH PO; +TRAZODONE HCL100 MG PO
--- NOTE | 2021-07-25 10:51 | NUR ---
07/25/21 1051 Varinder Schultz CONVERSATIONAL ON ENTRY TO PACU. DENIES NAUSEA OR PAIN. ENCOURAGED PT TO PASS GAS
--- NOTE | 2021-07-26 07:17 | OR ---
[facility] [address], [place] [address] Signed DATE OF OPERATION: 07/25/2021 SURGEON: Sushil Jean Baptiste MD PREOPERATIVE DIAGNOSES: 1. Gastroesophageal reflux disease. 2. Chronic epigastric abdominal pain with nausea. 3. Possible gastroparesis. 4. Possible short-segment Calvert's esophagus (2017). 5. Internal hemorrhoids. 6. Serrated adenomatous polyps in 2017. 7. Chronic diarrhea. 8. Brother with colon polyps, age 58. POSTOPERATIVE DIAGNOSES: 1. Mild diffuse gastritis. 2. Tiny hiatal hernia. 3. No visible evidence of Calvert's esophagus. 4. Moderate internal and external hemorrhoids. 5. 3 mm polyps x2 at 8 cm. 6. 4 mm polyp x1 at 20 cm/distal rectum. PROCEDURE: 1. Esophagogastroduodenoscopy with CLOtest and biopsies of the duodenum, antrum and GE junction. 2. Colonoscopy with hot biopsy and random cold biopsies x2. ESTIMATED BLOOD LOSS: None. INDICATIONS: Jose is a 55-year-old obese female, asked to see me for upper and lower endoscopy. She has had multiple colonoscopies in her life. She recalls one prior upper endoscopy in 2017. This was at [facility] in [place], [place] with Dr. Pankaj Underwood. She was said to have short-segment Calvert's esophagus. She is known to have internal hemorrhoids and a serrated adenomatous polyp. Biopsies from her terminal ileum and colon were unremarkable. Her stool studies and laboratory work were all unremarkable. She comes back with the same complaints of chronic diarrhea and epigastric abdominal pain associated with nausea and acid reflux. Also, her brother had colonic polyps removed at age 58. No colon cancer in the family. She has an enormous list of drug Electronically Signed By: SUSHIL JEAN BAPTISTE MD 07/26/21 0717 PATIENT NAME: JOSE LADD OPERATIVE REPORT DATE OF : 61 REPORT #: [id number] PHYSICIAN: SUSHIL JEAN BAPTISTE MD PCP: ISREAL TORRES MD REPORT IS CONFIDENTIAL AND NOT TO BE RELEASED WITHOUT AUTHORIZATION [facility] [address], [place] [address] Signed allergies. Her body mass index is also elevated. She always requires monitored anesthesia care for endoscopies. Of course, she qualifies once again. In the office, I gave Jose a pamphlet on both upper and lower endoscopy. We had reviewed the nature of the two tests. She understands there is risk including, but not limited to gas bloating, crampy abdominal pain, bleeding, perforation requiring surgery, and missed diagnosis. She had expressed understanding and wished to proceed. PROCEDURE NOTE: Jose was taken into our endoscopy suite and placed in a supine semi-recumbent position. The posterior oropharynx was anesthetized with lidocaine spray. A bite block was utilized for the case. Monitored anesthesia care was given per our nurse cargo router including propofol. The adult gastroscope was introduced and advanced out into the third portion of the duodenum without difficulty. We took a biopsy of the duodenum because of the history of diarrhea. Otherwise, the duodenum and pyloric channel were unremarkable. Her stomach showed mild diffuse erythematous changes. We went ahead and took a biopsy of the antrum for CLOtest as well as pathologic review. Upon retroflexion of scope, she may have just a very tiny hiatal hernia. The scope was withdrawn up through the area of the GE junction, which was compliant without stricture. There was no disruption to her Z-line. There was no visible Calvert's esophagus. We went ahead and took a biopsy along the edge of the Z-line for pathologic review. Her distal middle and upper esophagus were unremarkable. After this, the gas was suctioned out and the gastroscope removed. Jose tolerated procedure quite well. Jose was rotated into the left lateral decubitus position. She was maintained on monitored anesthesia care per our nurse cargo router. A digital rectal exam was performed and she does have moderate circumferential external hemorrhoids. She had good sphincter tone. The adult colonoscope was introduced and advanced all around into the cecum under direct visualization of camera without difficulty. Her prep was good. We could easily see the appendiceal orifice and ileocecal valve. The scope was then slowly withdrawn. Pictures were taken throughout for photodocumentation. We took a random biopsy in the right and left colon because of the history of diarrhea. Otherwise, no evidence of any inflammatory changes. No diverticulosis. The three tiny polyps mentioned above were easily removed with a hot biopsy forceps. Upon retroflexion of the scope in the rectum, she does have moderate internal hemorrhoid columns as well. After this, the gas suctioned out and colonoscope removed. Jose tolerated procedure quite well. RECOMMENDATIONS: I will see Jose back in my office in 7 to 14 days to review her results. I suspect she will stay on the 5-year rotation due to her personal family history of polyps. Electronically Signed By: SUSHIL JEAN BAPTISTE MD 07/26/21 0717 PATIENT NAME: JOSE LADD OPERATIVE REPORT DATE OF : 61 REPORT #: [id number] PHYSICIAN: SUSHIL JEAN BAPTISTE MD PCP: ISREAL TORRES MD REPORT IS CONFIDENTIAL AND NOT TO BE RELEASED WITHOUT AUTHORIZATION [facility] [address] [place], [place] [address] Signed Sushil Jean Baptiste MD ALB/MODL /[id number] cc: MD Sushil Taylor MD Copies: SUSHIL JEAN BAPTISTE MD ~ Electronically Signed By: SUSHIL JEAN BAPTISTE MD 07/26/21 0717 PATIENT NAME: JOSE LADD OPERATIVE REPORT DATE OF : 61 REPORT #: [id number] PHYSICIAN: SUSHIL JEAN BAPTISTE MD PCP: ISREAL TORRES MD REPORT IS CONFIDENTIAL AND NOT TO BE RELEASED WITHOUT AUTHORIZATION
== END 2021-07-25 11:20 | disposition home or self-care (01) ==
LOC: DS 06:50 → OPS 06:50
PROVIDERS: ATTEND Colon & Rectal Surgery
PROC: 0DBK8ZX Excision of Ascending Colon, Via Natural or Artificial Opening Endoscopic, Diagnostic (ICD-10-PCS; 2021-07-25)
PROC: 0DBM8ZX Excision of Descending Colon, Via Natural or Artificial Opening Endoscopic, Diagnostic (ICD-10-PCS; 2021-07-25)
PROC: 0DB98ZX Excision of Duodenum, Via Natural or Artificial Opening Endoscopic, Diagnostic (ICD-10-PCS; principal; 2021-07-25 07:45)
PROC: 0DB78ZX Excision of Stomach, Pylorus, Via Natural or Artificial Opening Endoscopic, Diagnostic (ICD-10-PCS; 2021-07-25 07:45)
DX: K63.5 Polyp of colon (principal); K29.50 Unspecified chronic gastritis without bleeding; K62.1 Rectal polyp; K21.9 Gastro-esophageal reflux disease without esophagitis; K44.9 Diaphragmatic hernia without obstruction or gangrene; K64.4 Residual hemorrhoidal skin tags; K64.8 Other hemorrhoids; E66.9 Obesity, unspecified; F17.210 Nicotine dependence, cigarettes, uncomplicated; J45.909 Unspecified asthma, uncomplicated; E11.9 Type 2 diabetes mellitus without complications; Z88.5 Allergy status to narcotic agent; Z88.8 Allergy status to other drugs, medicaments and biological substances; Z88.0 Allergy status to penicillin; Z91.048 Other nonmedicinal substance allergy status
CPT/HCPCS: 83009; 88305; J2001; J2704; J7121

== ENCOUNTER 2023-02-06 13:23 | Emergency (ER) | payer MEDICARE, OTHER ==
[~2023-02-06] VITALS: Ht 157.5 cm; Wt 94.8 kg
[2023-02-06] MEDS ORDERED: ONDANSETRON ODT8 MG PO (14:51)
[2023-02-06] MEDS ORDERED: MIRALAX17 GM PO (14:51)
[2023-02-06] MEDS ORDERED: CYCLOBENZAPRINE10 MG PO (14:52)
[2023-02-06 16:21] VITALS: BP 126/75
== END 2023-02-06 16:23 | disposition home or self-care (01) ==
LOC: ED 13:23
DX: K52.9 Noninfective gastroenteritis and colitis, unspecified (principal); F43.10 Post-traumatic stress disorder, unspecified; E11.22 Type 2 diabetes mellitus with diabetic chronic kidney disease; I12.9 Hypertensive chronic kidney disease with stage 1 through stage 4 chronic kidney disease, or unspecified chronic kidney disease; K21.9 Gastro-esophageal reflux disease without esophagitis; N18.9 Chronic kidney disease, unspecified; G47.30 Sleep apnea, unspecified; F17.200 Nicotine dependence, unspecified, uncomplicated; Z88.0 Allergy status to penicillin; Z91.048 Other nonmedicinal substance allergy status; Z88.8 Allergy status to other drugs, medicaments and biological substances; Z88.6 Allergy status to analgesic agent; Z88.5 Allergy status to narcotic agent; Z88.7 Allergy status to serum and vaccine; Z88.1 Allergy status to other antibiotic agents; Z79.899 Other long term (current) drug therapy; Z79.84 Long term (current) use of oral hypoglycemic drugs
CPT/HCPCS: 36415; 70450; 74018; 80053; 81003; 83690; 85025; 96374; 96375; 99284-25; J1790; J3010; J7121

== ENCOUNTER 2024-01-29 12:18 | Inpatient (IN) | payer MEDICARE, OTHER ==
[~2024-01-29] VITALS: Ht 157.5 cm; Wt 86.0 kg
[~2024-01-29 12:18] MED LIST changes: +CYCLOBENZAPRINE10 MG PO; +MIRALAX17 GM PO; +ONDANSETRON ODT8 MG PO
[2024-01-29] MEDS ORDERED: LORazepam 2 MG/ML VIAL ONE (12:59)
[2024-01-29 13:13] LABS: BASOPHILS 0.5 % (0-2); EOSINOPHILS 1.1 % (0-6); HEMOGLOBIN 13.3 g/dL (12.0-18.0); LYMPHOCYTES 30.2 % (24-44); MCH 28.6 (27-36); MCHC 33.3 g/dl (30-36); MCV 85.9 fl (81-99); MONOCYTES 7.3 % (0-12); NEUTROPHILS 60.9 % (39-80); PLATELET COUNT 289 K/uL (140-440); RBC 4.66 M/ul (4.3-5.7)
[2024-01-29] MEDS ORDERED: CYCLOBENZAPRINE5 MG PO (13:14)
[2024-01-29] MEDS ORDERED: HYDROCHLOROTHIA25 MG PO (13:15)
[2024-01-29] MEDS ORDERED: DULOXETINE HCL30 MG PO (13:15)
[2024-01-29] MEDS ORDERED: LORazepam 2 MG/ML VIAL IV ONE (13:15)
[2024-01-29] MEDS ORDERED: PREGABALIN75 MG PO (13:15)
[2024-01-29] MEDS ORDERED: MONTELUKAST SOD10 MG PO (13:16)
[2024-01-29] MEDS ORDERED: LOSARTAN POTAS100 MG PO (13:16)
[2024-01-29] MEDS ORDERED: OMEPRAZOLE40 MG PO (13:16)
[2024-01-29] MEDS ORDERED: JARDIANCE25 MG PO (13:18)
[2024-01-29 13:23] LABS: INR 0.98 (0.80-1.30); PROTIME 12.3 Sec (11.2-14.2)
[2024-01-29 13:30] LABS: ALBUMIN 3.3 g/dL (3.4-5.0); ALBUMIN/GLOBULIN RATIO 0.87 (1.1-2.4); ALKALINE PHOSPHATASE 75 U/L (46-116); ALT (SGPT) 52 U/L (14-59); ANION GAP 14.3 (7-21); AST (SGOT) 36 U/L (15-37); BILIRUBIN, TOTAL 0.3 ng/dL (0.2-1.0); BUN/CREATININE RATIO 11.11 (6.0-28.6); CALCIUM 8.4 mg/dL (8.5-10.1); CARBON DIOXIDE 28 mmol/L (21-32); CHLORIDE 100 mmol/L (98-107); CREATININE, SERUM 1.26 mg/dL (0.55-1.02); GLOMERULAR FILTRATION RATE,EST 49 mL/min (>60); POTASSIUM 3.3 mmol/L (3.5-5.1); PROTEIN, TOTAL 7.1 g/dL (6.4-8.2); UREA NITROGEN 14 mg/dL (7-18)
[2024-01-29] MEDS ORDERED: POTASSIUM CHLORIDE 10 MEQ TABCR PO ONE (13:45)
[2024-01-29] MEDS ORDERED: SODIUM CHLORIDE 0.9% 500 ML IV PRN ×2 (16:00→21:30)
[2024-01-29] MEDS ORDERED: MECLIZINE HCL 25 MG TAB PO ONE (16:00)
[2024-01-29] MEDS ORDERED: ANTIVERT25 M1 PO (18:02)
[2024-01-29] MEDS ORDERED: MELATONIN 3 MG TAB PO PRN (21:00)
[2024-01-29] MEDS ORDERED: CIPROFLOXACIN 0.3% 5 ML HOME.PACK OTIC ONE (21:30)
[2024-01-29] MEDS ORDERED: MAGNESIUM HYDROXIDE 30 ML UDC PO PRN (21:30)
[2024-01-29] MEDS ORDERED: BACLOFEN 10 MG TAB PO PRN (21:30)
[2024-01-29] MEDS ORDERED: ondansetron HCL 4 MG/2 ML VIAL IV PRN (21:30)
--- NOTE | 2024-01-29 22:00 | NUR ---
pt ARRIVES FROM ER WITH RESTAURANT SHIFT LEADER. VSS. pt RESTING IN BED AWAKE. ORIENTATION TO ROOM PROVIDED. SNACK AND ICE WATER PROVIDED. XRAY IN ROOM FOR LEFT HIP XRAY PER VERBAL ORDER TO BOATSWAINS MATEEDMAR TINAJERO. pt WITH CALL LIGHT IN REACH, WAITING FOR TO BRING HOME CPAP. HANDOFF REPORT TO EDMAR BOYD.
[2024-01-29 22:06] VITALS: BP 140/83
[2024-01-29] MEDS ORDERED: MAGNESIUM SULFATE 2 GM/50 ML BAG IV ONE (22:30)
[2024-01-29] MEDS ORDERED: CYCLOBENZAPRINE HCL 10 MG TAB PO PRN (22:30)
[2024-01-29] MEDS ORDERED: CIPROFLOXACIN 0.3% 5 ML HOME.PACK OTIC SCH (23:28)
--- NOTE | 2024-01-30 | NUR ---
REPORT RECEIVED FROM EDMAR HE. ASSESSMENT COMPLETED- SEE DOCUMENTATION. EAR DROPS ADMINISTERED PER ORDERS AND PLACED IN THE IN-ROOM LOCK BOX. IV INTACT WITH MAGNESIUM PIGGYBACK INFUSING. R.T. TO BRING IN DISTILLED WATER FOR PT'S HOME CPAP, THEN PT STATES SHE IS READY FOR SLEEP. CALL LIGHT AND BELONGINGS WITHIN REACH.
--- NOTE | 2024-01-30 01:46 | NUR ---
PT SLEEPING WITH HOME CPAP IN PLACE. NO APPARENT DISTRESS, RESPIRATIONS EVEN AND UNLABORED. RR: 16.
[2024-01-30 02:12] VITALS: BP 127/70
--- NOTE | 2024-01-30 02:23 | NUR ---
OFFICE PROFESSIONALS ENETERED ROOM AND OBTAINED PT VITALS. PT STATED SHE NEEDED TO USE BATHROOM. OFFICE PROFESSIONALS 1PA TO BATHROOM AND BACK. PT BACK IN BED. RN PLACED SCDS. I&O DOCUMENTED. PT STATES NO FURTHER NEEDS AT THIS TIME. CALL LIGHT WITHIN REACH AND RN REMAINS IN ROOM.
--- NOTE | 2024-01-30 04:07 | NUR ---
CARE OF PT ASSUMED, REPORT RECEIVED FROM DEB HYATT.
[2024-01-30 05:30] LABS: ANION GAP 14.7 (7-21); BUN/CREATININE RATIO 11.76 (6.0-28.6); CALCIUM 8.4 mg/dL (8.5-10.1); CREATININE, SERUM 1.02 mg/dL (0.55-1.02); MAGNESIUM 2.6 mg/dL (1.8-2.4); POTASSIUM 3.7 mmol/L (3.5-5.1)
--- NOTE | 2024-01-30 05:35 | NUR ---
IN TO CHECK ON PT, PT RESTING WITH CPAP ON, RESP EVEN AND UNLABORED, NAD. CALL LIGHT IN REACH.
[2024-01-30 06:06] VITALS: BP 98/56
[2024-01-30 06:09] LABS: BASOPHILS 0.7 % (0-2); EOSINOPHILS 1.8 % (0-6); HEMATOCRIT 42.2 % (35.0-50.0); HEMOGLOBIN 13.8 g/dL (12.0-18.0); LYMPHOCYTES 31.6 % (24-44); MCH 28.4 (27-36); MCHC 32.8 g/dl (30-36); MCV 86.6 fl (81-99); NEUTROPHILS 57.9 % (39-80); PLATELET COUNT 266 K/uL (140-440); RBC 4.87 M/ul (4.3-5.7); RDW 13.8 (10.5-15.0)
--- NOTE | 2024-01-30 06:10 | NUR ---
HISTOLOGIC TECHNICIAN ENTERED ROOM AND OBTAINED VITALS. NO NEW I&O NOTED. HISTOLOGIC TECHNICIAN BROUGHT PT COFFEE WTIH CREAM REQUESTED BY PT. PT STATES NO FURTHER NEEDS AT THIS TIME. CALL LIGHT WITHIN REACH.
--- NOTE | 2024-01-30 06:40 | NUR ---
IN TO DO ASSESSMENT, PT DENIES NEEDS AT THIS TIME. DOES STATE SHE IS FEELING DIZZY WITH SITTING IN BED, REMINDED PT TO PLEASE NOT TRY TO GET UP BY HERSELF AND SHE AGREES. ALERT AND ORIENTED, CALL LIGHT IN REACH.
--- NOTE | 2024-01-30 07:32 | NUR ---
UR CLIN[facility] REVIEW: [facility]24 @ 2119 YES MATCHES STATUS NO AUTH REQUIRED PLAN TO DC TO HOME NEXT REVIEW 01/31/24
--- NOTE | 2024-01-30 08:00 | NUR ---
recieved shift report. pt awake in bed, requesting to use bathroom. SN Dominique in room to assist pt.
[2024-01-30 08:40] VITALS: BP 149/77
[2024-01-30] MEDS ORDERED: LOSARTAN POTASSIUM 100 MG TAB PO SCH (09:00)
[2024-01-30] MEDS ORDERED: DULOXETINE HCL 30 MG CAP PO SCH ×2 (09:00→21:00)
[2024-01-30] MEDS ORDERED: METOPROLOL SUCCINATE 50 MG TABCR PO SCH (09:00)
[2024-01-30] MEDS ORDERED: hydroCHLOROthiazide 25 MG TAB PO SCH (09:00)
[2024-01-30] MEDS ORDERED: MONTELUKAST SODIUM 10 MG TAB PO SCH (09:00)
[2024-01-30] MEDS ORDERED: PREGABALIN 75 MG CAP PO SCH ×2 (09:00→21:00)
[2024-01-30] MEDS ORDERED: PANTOPRAZOLE SODIUM 40 MG TABEC PO SCH (09:00)
--- NOTE | 2024-01-30 10:34 | NUR ---
MORNING ASSESSMENT COMPLETE. PT AWAKE IN BED, PHYSICAL THERAPY IN ROOM. PT DENIES ANY COMPLAINTS AT THIS TIME. BARON STUDENT NURSE IN ROOM TO ASSIST.
--- NOTE | 2024-01-30 10:50 | NUR ---
UNABLE TO VISIT DURING SPIRITUAL CARE ROUNDS; PT WORKING WITH PHYSICAL THERAPY THEN IN CONFERENCE WITH CASE MANAGEMENT. PROVIDED PRAYER. WILL FOLLOW UP CIRCUMSTANCES WARRANT.
[2024-01-30] MEDS ORDERED: PHARMACY RENAL DOSE ADJUSTMENT 1 DOSE MISC PO SCH (12:00)
[2024-01-30] MEDS ORDERED: ADULT MULTI G200 MCG PO (12:36)
--- NOTE | 2024-01-30 12:36 | NUR ---
MED REC COMPLETE
[2024-01-30 14:02] VITALS: BP 131/65
--- NOTE | 2024-01-30 14:04 | EKG ---
[facility] [address] [place], [place] [address] Signed Normal sinus rhythm Inferior infarct , age undetermined Abnormal ECG When compared with ECG of 18-JUL-2021 11:49, Inferior infarct is now present Confirmed by Alicia Pritchett ([id number]) on 01/30/2024 2:04:25 PM Electronically Signed By: ALICIA PRITCHTET MD 01/30/24 1404 PATIENT NAME: JOSE LADD Electrocardiogram DATE OF : 61 PHYSICIAN: ALICIA PRITCHETT MD REPORT #: [id number] REPORT IS CONFIDENTIAL AND NOT TO BE RELEASED WITHOUT AUTHORIZATION
--- NOTE | 2024-01-30 15:00 | NUR ---
Spoke with Laura. She lives in a trailer house with her spouse. They have 3 steps in and pt has difficulty with steps at times. Her spouse and her brother assist her if need. Pt has SDOH needs. She and spouse are both on SSD. Pt states spouse has returned to work as they cannot financially survive on their disability. She is unable to work due to dizziness and a back injury. They have applied for low income housing, but have not had any feed back. I showed her where to go on line and apply for housing. I then helped her with the three food [facility] and gave her their phone numbers. She added to her phone. We discussed food stamps and she states they applied a few years ago and did not qualify. I called [facility] and total amt for a couple is $1900 per month. She states they make more than this. While I was speaking with [facility], they gave me the name of the [place] new low income housing. She let me know this is income based and there is not a long waiting list. I gave the name and phone number to Laura. She denies other needs at this time. Spouse and brother arrive to visit.
--- NOTE | 2024-01-30 15:08 | NUR ---
REPORT RECIEVED FROM EDMAR ALMANZAR. PT SITTING UP IN RECLINER AND RESPONDS WHEN ADDRESSED. IMAGING IN ROOM TO TAKE PT. NO NEEDS FROM THIS RN.
--- NOTE | 2024-01-30 15:20 | NUR ---
Notified by PT, they will recommend SNF as pt is unsafe for dc due to gait instability. I contacted Dr. Pritchett and she agrees. Pt status change to IP. I gave pt the pt choice letter. She wants to stay in town and does not want to go anywhere out of town. I called and spoke with Allie and faxed her chart. Requesting placement on . as it is a holiday weekend and they are not accepting pts. until next week.
--- NOTE | 2024-01-30 16:03 | NUR ---
IN TO ANSWER CALL LIGHT. PT SITTING UP IN RECLINER. PT REQUESTING TO GET INTO BED. 2PA WITH FWW FROM RECLINER TO BED. ASSESSMENT COMPLETE. PT PUSHES AGAINST THIS RNs HANDS AND IT IS NOTED THAT LLE IS SLIGHTLY WEAKER COMPARED TO RLE. PT ABLE TO HOLD RLE IN AIR WITH EASE FOR 5 SECONDS. ASKED PT TO LIFT LLE UP IN BED AND PT IS NOTED TO HAVE DIFFICULTY HOLDING LLE. PT REPORTS NUMBNESS IN LEFT UPPER THIGH. NOTED THAT LEFT POPLATEAL IS PAINFUL WHEN KOSTA, SN PALPATING POPLATEAL PULSE. LEFT HIP ALSO NOTED TO BE PAINFUL WITH PALPATION. PT DENIES PAIN WHILE LAYING IN BED WITHOUT ANY STIMULATION. PT REPORTING NAUSEA AND STATES "I HAVE NOT ATE MUCH." CRACKER AND CHEESE STICK PROVIDED. PT DENIES ANY OTHER NEEDS AT THIS TIME. CALL LIGHT IN REACH.
[2024-01-30] MEDS ORDERED: ATORVASTATIN 10 MG TAB PO SCH (17:00)
[2024-01-30] MEDS ORDERED: ATORVASTATIN 20 MG TAB PO SCH (17:00)
--- NOTE | 2024-01-30 17:26 | NUR ---
IN TO ROUND ON PT. PT REPORTING HEADACHE 5/10, TERRY MEDICATION INTERVENTION AT THIS TIME BUT REQUESTING TWO HOT PACKS FOR FRONT AND BACK OF HEAD, RETRIEVED. LIGHT DIMMED. PT HAS DINNER TRAY BY BED, SLOWLY EATING. CALL LIGHT IN REACH, NO OTHER NEEDS AT THIS TIME.
[2024-01-30 17:41] VITALS: BP 150/81
--- NOTE | 2024-01-30 19:05 | NUR ---
REPORT RECEIVED FROM AM RN. PT IN BED, RESP EVEN AND UNLABORED, CPAP IN PLACE, LIGHTS OUT.
--- NOTE | 2024-01-30 20:18 | NUR ---
ROUNDED ON PT, STATED ROOM WAS WARM, NOTED TEMP READS 68, OFFERED FAN, ACCEPTED. STATED THAT THE FAN WILL HELP. PT AWARE THAT SHE CAN TAKE IT HOME, SHE WAS VERY HAPPY.
--- NOTE | 2024-01-30 20:31 | NUR ---
HS MEDICATIONS ADMINISTERED AT THIS TIME.
[2024-01-30 20:57] VITALS: BP 135/85
--- NOTE | 2024-01-30 23:27 | NUR ---
rounded on pt, laying on left side, lights out, cpap in place.
[2024-01-31] VITALS (9 sets, daily range): BP systolic 130–162; BP diastolic 70–88
--- NOTE | 2024-01-31 00:29 | NUR ---
PATIENT RESTING IN BED WITH EYES CLOSED. RESPIRATIONS EVEN AND UNLABORED. CPAP IN PLACE. CALL LIGHT WITHIN REACH.
--- NOTE | 2024-01-31 02:36 | NUR ---
PATIENT IS RESTING IN BED WITH EYES CLOSED. RESPIRATIONS EVEN AND UNLABORED. CPAP ON AND FUNCTIONING WNL. CALL LIGHT WITHIN REACH.
--- NOTE | 2024-01-31 04:10 | NUR ---
PATIENT RESTING IN BED WITH EYES CLOSED. LAYING ON RIGHT SIDE. RESPIRATIONS EVEN AND UNLABORED. CPAP ON AND FUNCTIONING WNL. CALL LIGHT WITHIN REACH.
--- NOTE | 2024-01-31 05:05 | NUR ---
PATIENT AMBULATED TO BATHROOM. TOLLERATED WELL WITH 1 PA ASSIST AND FWW. C/O TINGLING AND NUMBNESS IN LEFT LEG/THIGH. VSS, C/O MILD DIZZINESS WHEN FIRST CHANGING POSITIONS. NO FURTHER NEEDS AT THIS TIME. CALL LIGHT WITHIN REACH.
[2024-01-31 05:34] LABS: BASOPHILS 0.5 % (0-2); EOSINOPHILS 1.6 % (0-6); HEMATOCRIT 46.4 % (35.0-50.0); HEMOGLOBIN 15.3 g/dL (12.0-18.0); LYMPHOCYTES 25.7 % (24-44); MCH 28.6 (27-36); MCHC 32.9 g/dl (30-36); MCV 86.7 fl (81-99); MONOCYTES 7.2 % (0-12); PLATELET COUNT 312 K/uL (140-440); RBC 5.35 M/ul (4.3-5.7); RDW 14.3 (10.5-15.0)
[2024-01-31 05:44] LABS: ANION GAP 13.5 (7-21); BUN/CREATININE RATIO 8.94 (6.0-28.6); CALCIUM 9.4 mg/dL (8.5-10.1); CREATININE, SERUM 1.23 mg/dL (0.55-1.02); POTASSIUM 3.5 mmol/L (3.5-5.1)
--- NOTE | 2024-01-31 07:05 | NUR ---
REPORT RECIEVED FROM EDMAR GAMEZ. PT SITTING UP IN BED AND RESPONDS WHEN ADDRESSED. PT REQUESTING ICE WATER AND TEA, PROVIDED. PT DENIES ANY OTHER NEEDS AT THIS TIME. CALL LIGHT IN REACH.
[2024-01-31] MEDS ORDERED: POTASSIUM CHLORIDE 10 MEQ TABCR PO ONE (08:15)
--- NOTE | 2024-01-31 08:22 | NUR ---
GOT PATIENT A WARM WASH CLOTH. PATIENT HAS NO TEETH THEY ARE AT HOME. SO SHE USED MOUTH WASH. WE ALSO CHANGED HER LUNCH AND DINNER ORDER. PATIENT IS SITTING UP IN BED.
--- NOTE | 2024-01-31 09:13 | NUR ---
IN WITH SN KOSTA TO ADMINISTER MEDICATIONS, SEE MAR. PT TAKES PO MEDICATIONS WITH NO ISSUES. PT REPORTING PAIN 8/10 TO LOWER BACK. PRN MEDICAITON ADINISTERED, SEE NOV. HOT PACK PROVIDED. ASSESSMENT COMPLETE. LUNG SOUNDS CLEAR. BOWEL TONES ACTIVE. ABD SOFT WITH PALPATION. PT REPORTS TENDERNESS TO MID UPPER ABD WITH PALPATION. PT DENIES NUMBNESS/TINGLING AT THIS TIME IN HANDS AND FEET. PT REPORTS "ONLY NUMBNESS IN LEFT THIGH." PEDAL PULSES PALPABLE, FAINT. PT REPORTS PAIN AT IV SITE WHEN FLUSHING. PT AGREEABLE TO NEW IV. PT DENIES ANY OTHER NEEDS AT THIS TIME. CALL LIGHT IN REACH. PT SITTING UP IN RECLINER.
--- NOTE | 2024-01-31 11:03 | NUR ---
PT WORKING WITH PHYSICAL THERAPY. NO NEEDS FROM THIS RN.
--- NOTE | 2024-01-31 12:10 | NUR ---
IN PT CALLING, PT REQUESTING BATHROOM. PT AMBULATES WITH FWW TO RESTROOM AND BACK TO RECLINER WITH NO ISSUES. CALL LIGHT IN REACH, NO OTHER NEEDS NOTED AT THIS TIME.
--- NOTE | 2024-01-31 12:42 | NUR ---
IN TO ROUND ON PT. PT SITTING UP IN RECLINER WITH LEGS CROSSED. PT NOTED TO HAVE VISITOR COME IN. PT DENIES ANY OTHER NEEDS AT THIS TIME. CALL LIGHT IN REACH.
--- NOTE | 2024-01-31 13:57 | NUR ---
IN TO ROUND ON PT AND SECOND ASSESSMENT, FAMILY ON COUCH BESIDE PT. ASSESSMENT COMPLETE. PEDAL PULSES FAINT AND EQUAL BLE, PEDAL STRENGTH EQUAL. PT LIFTS RLE WITHOUT ISSUE, MAINTAINS LIFT AND RESISTS PRESSURES TO PUSH DOWN. PT ATTEMPTS TO LIFT LLE, LIFTS A FEW CENTIMETERS AND CANNOT MAINTAIN. CANNOT RESIST PRESSURE TO PUSH LEG DOWN. PT CURRENTLY REPORTING NO PAIN. PT REQUESTS USING THE RESTROOM, AMBULATES WITH EDMAR HORTON AND FWW. PT AMBULTES BACK TO RECLINER WITHOUT ISSUE. PT FAMILY MEMBER LEAVES, PT STATES ANOTHER FAMILY MEMBER IS ON THE WAY. CALL LIGHT IN REACH, NO OTHER NEEDS NOTED.
--- NOTE | 2024-01-31 13:57 | NUR ---
IN WITH SN KOSTA TO ROUND ON PT. PT SITTING UP ON RECLINER AND RESPONDS WHEN ADDRESSED. PTs SON ON COUCH. ASSESSMENT COMPLETE. PT NOTED TO HAVE EQUAL STRENGTH WITH PUSHING AND PULLING AGAINST KOSTA, SN HANDS. PT ABLE TO HOLD RIGHT LEG UP WITH EASE FOR 5 SECOND COUNT. PT ATTEMPTS TO HOLD LEFT LEG UP IN AIR. PT NOTED TO [place] AND LEFT LEG DOES NOT RAISE UP IN AIR HIGH RIGHT LEG, REGARDLESS PT IS ABLE TO HOLD LLE WITHOUT IT FALLING TO RECLINER, DRIFT NOTED. PT REPORTING NUMBNESS IN LEFT THIGH. PT DENIES PAIN OTHERWISE WHILE SITTING UP IN RECLINER. PT REQUESTING TOILETING NEEDS. 2PA WITH FWW FROM RECLINER TO RESTROOM. PT NOTED TO VOID. 2PA WITH FWW FROM RESTROOM BACK TO RECLINER. PT DENIES ANY OTHER NEEDS AT THIS TIME. CALL LIGHT IN REACH.
--- NOTE | 2024-01-31 17:07 | NUR ---
IN WITH EDMAR HORTON TO ADMINISTER MEDICATIONS PER MAR. PT HAS CURRENT VISITOR SITTING BESIDE HER, VISITOR BROUGHT FOOD AND THEY ARE EATING TOGETHER AND VISITING. PT REPORTS PAIN, 6/10 IN LOWER BACK. HOT PACK PROVIDED, PRN PAIN MEDICATION PROVIDED PER MAR. RAMSES FROM ADMITTING ARRIVES FOR SIGNATURES. PT HAS CALL LIGHT BESIDE HER, FRIEND STILL VISITING, NO OTHER NEEDS NOTED AT THIS TIME.
--- NOTE | 2024-01-31 19:45 | NUR ---
REPORT RECEIVED FROM DAY RN. PATIENT RESTING IN RECLINER. TALKATIVE WITH NURSING STAFF. DENEIS ANY PAIN OR DISCOMFORT AT THIS TIME. CALL LIGHT WITHIN REACH.
--- NOTE | 2024-01-31 21:25 | NUR ---
PATIENT RESTING IN BED. TALKING TO FAMILY ON THE PHONE. DENIED NEED TO USE BATHROOM AT THIS TIME. CPAP WITHIN REACH WHEN SHE IS READY TO GO TO SLEEP. DENIED PAIN OR DISCOMFORT AT THIS TIME. REPORTS NO FEELINGS OF THINGLING IN LOWER EXTERMITIES. CMS INTACT. DENIES ANY FEELING OF DIZZINESS AT THIS TIME. NO FURTHER NEEDS AT THIS TIME. CALL LIGHT WITHIN REACH.
--- NOTE | 2024-01-31 22:20 | NUR ---
PATIENT IN BED AT THIS TIME. ONCOLOGY COORDINATOR ASSISTED PATIENT FROM CHAIR TO BED. CALL LIGHT WITHIN REACH, NO FURTHER NEEDS AT THIS TIME.
--- NOTE | 2024-01-31 23:43 | NUR ---
SCREEN PRINTING STENCIL PREPARER ASSISTED PATIENT FROM BED TO BATHROOM BACK TO BED. PATIENT VOIDED URINE. CALL LIGHT WITHIN REACH, NO FURTHER NEEDS AT THIS TIME.
[2024-02-01] VITALS (7 sets, daily range): BP systolic 122–152; BP diastolic 70–81
--- NOTE | 2024-02-01 00:51 | NUR ---
PATIENT RESTING IN BED WITH EYES CLOSED. RESPIRATIONS EVEN AND UNLABORED. CPAP IN PLACE AND FUNCTIONING WNL. CALL LIGHT WITHIN REACH.
--- NOTE | 2024-02-01 02:06 | NUR ---
PATIENT AWAKE IN BED WATCHING "SHOWS" ON HER PHONE. PT STATED, "I HAVE A HARD TIME SLEEPING WITH OUT MY ." PATIENT ASKED FOR A SNACK. SNACK GIVEN. NO C/O PAIN OR DISCOMFORT. CALL LIGHT WITHIN REACH.
--- NOTE | 2024-02-01 04:00 | NUR ---
PATIENT RESTING IN BED WITH EYES CLOSED. CPAP ON AND FUNCTIONING WNL. RESPIRATIONS EVEN AND UNLABORED. CALL LIGHT WITHIN REACH.
--- NOTE | 2024-02-01 05:11 | NUR ---
PATIENT RESTING IN BED. VSS, DENEIS ANY FEELINGS OF DIZZINESS AT THIS TIME. REPORTS SOME TINGLING/NUMBNESS IN LEFT THIGH. CMS INTACT TO BLLE. NO NEEDS AT THIS TIME. PATIENT RESTING WITH CPAP ON. CALL LIGHT WITHIN REACH.
[2024-02-01 05:43] LABS: BASOPHILS 0.7 % (0-2); EOSINOPHILS 2.2 % (0-6); HEMOGLOBIN 15.7 g/dL (12.0-18.0); LYMPHOCYTES 28.1 % (24-44); MCH 28.8 (27-36); MCHC 33.4 g/dl (30-36); MCV 86.4 fl (81-99); MONOCYTES 8.9 % (0-12); NEUTROPHILS 60.1 % (39-80); PLATELET COUNT 275 K/uL (140-440); RBC 5.45 M/ul (4.3-5.7); RDW 14.1 (10.5-15.0)
[2024-02-01 05:55] LABS: ANION GAP 12.9 (7-21); BUN/CREATININE RATIO 8.08 (6.0-28.6); CALCIUM 9.8 mg/dL (8.5-10.1); CREATININE, SERUM 1.36 mg/dL (0.55-1.02); POTASSIUM 3.9 mmol/L (3.5-5.1)
--- NOTE | 2024-02-01 07:17 | NUR ---
VERBAL REPORT RECEIVED FROM EDMAR GAMEZ. PT RESTS IN BED WITH EYES CLOSED, RESP EVEN AND UNLABORED.
--- NOTE | 2024-02-01 08:03 | NUR ---
ASSISTED PT TO THE BATHROOM. PT TOLERATED AMBULATION WELL. OUTPUT WAS RECORDED ON PT DOOR. PROGRAM CONTROL ANALYST ASSISTED PT UP TO THE CHAIR FOR BREAKFAST. NO FURTHER COMPLAINTS CALL LIGHT WITHIN REACH
--- NOTE | 2024-02-01 12:04 | NUR ---
PT UP TO TOILET WITH 2 PERSON SBA AND FWW. PT VOIDS 400 MLS OF YELLOW URINE. PT AMBULATES IN BUNCH WITH PHYSICAL THERAPY AND THIS RN. PT TO PHYSICAL THERAPY GYM WITH PHANI BACK.
--- NOTE | 2024-02-01 12:23 | NUR ---
Board has been updated and call light has been placed within reach.No request from patient at this time.
[2024-02-01] MEDS ORDERED: BENZONATATE 100 MG CAP PO PRN (13:15)
[2024-02-01] MEDS ORDERED: SODIUM CHLORIDE 0.9% 1,000 ML IV SCH (13:15)
--- NOTE | 2024-02-01 16:25 | NUR ---
PT SITS UP IN RECLINER, ON CELL PHONE, CALL LIGHT IN REACH, NO REQUESTS AT THIS TIME.
[2024-02-01] MEDS ORDERED: MAGNESIUM CITRATE 300 ML BTL PO ONE (17:15)
[2024-02-01] MEDS ORDERED: bisacodyL 10 MG SUPP PR ONE (17:15)
--- NOTE | 2024-02-01 17:20 | NUR ---
BISACODYL SUPPOSITORY RECEIVED FOR CONSTIPATION, LAST BM REPORTED BY PT 01/30/24.
--- NOTE | 2024-02-01 18:20 | NUR ---
both nares swabbed without complication.
[2024-02-01 19:02] LABS: INFLUENZA B NAA NEGATIVE (NEGATIVE); RESPIRATORY SYNCYTIAL VIR NAA NEGATIVE (NEGATIVE)
--- NOTE | 2024-02-01 19:30 | NUR ---
REPORT RECEIVED FROM EDMAR DAIGLE. pt RESTING IN BED AWAKE, SITTING UP WATCHING TV. IVF INFUSING WNL. NO DISTRESS NOTED. pt DENIES NEEDS. CALL LIGHT IN REACH.
--- NOTE | 2024-02-01 21:00 | NUR ---
PATIENT CALLED TO USE THE BATHROOM. 1 PA USING WALKER. PATIENT WALKED STEADY ON HER FEET AND TOLERATED WELL. PATIENT IS BACK IN BED. PRIMARY RN WAS WITH PATIENT.
--- NOTE | 2024-02-01 21:26 | NUR ---
pt BACK IN BED FROM RESTROOM FOR VOID AND BM WITH JASMYNE ADAMS 1PA FWW. ASSESSMENT COMPLETE. IV SITE FLUSHED WNL. SCHEDULED MEDICATIONS ADMINISTERED. CSM INTACT BUE, BLE. CALL LIGHT IN REACH.
[2024-02-01] MEDS ORDERED: MELATONIN 3 MG TAB ONE (23:52)
--- NOTE | 2024-02-02 | NUR ---
pt'S AND SON OUT OF ROOM, pt REQUESTS PRN MUSCLE RELAXER AND SLEEP MEDICATION. MEDICATIONS ADMINISTERED. pt STATES SHE FEELS LIKE SHE TURNED WRONG AND BACK IS HURTING. IVF INFUSING WNL. pt DENIES TOILETING NEEDS AT THIS TIME.
--- NOTE | 2024-02-02 01:52 | NUR ---
CHECKED ON pt. RESTING IN BED ON RIGHT SIDE. HOME CPAP ON. NO DISTRESS NOTED.
--- NOTE | 2024-02-02 04:20 | NUR ---
CHECKED ON pt. pt RESTING IN BED WITH CPAP ON. LIGHTS OFF IN ROOM. NO DISTRESS NOTED.
[2024-02-02 04:45] VITALS: BP 132/70
[2024-02-02 05:34] VITALS: BP 130/73
[2024-02-02 05:39] LABS: BASOPHILS 0.7 % (0-2); HEMATOCRIT 46.1 % (35.0-50.0); LYMPHOCYTES 29.8 % (24-44); MCH 28.5 (27-36); MCHC 32.6 g/dl (30-36); MCV 87.4 fl (81-99); MONOCYTES 8.6 % (0-12); NEUTROPHILS 58.9 % (39-80); PLATELET COUNT 278 K/uL (140-440); RBC 5.28 M/ul (4.3-5.7); RDW 14.2 (10.5-15.0)
--- NOTE | 2024-02-02 05:42 | NUR ---
CALL LIGHT ANSWERED. SBA WITH FWW TO RESTROOM FOR 900 ML VOID AND BACK TO BED, GAIT STEADY. pt DENIES NUMBNESS AND TINGLING, SENSATION INTACT BUE, BLE. DENIES PAIN. STATES RESTED WELL WITH PRN MEDICATIONS. NEW BAG IVF INFUSING WNL. VSS. CALL LIGHT IN REACH. ICE WATER AND COFFEE PROVIDED.
[2024-02-02 05:51] LABS: ANION GAP 12.9 (7-21); BUN/CREATININE RATIO 9.23 (6.0-28.6); CREATININE, SERUM 1.3 mg/dL (0.55-1.02); POTASSIUM 3.9 mmol/L (3.5-5.1)
--- NOTE | 2024-02-02 07:17 | NUR ---
PT UP WORKING WITH P/T AT TIME OF SHIFT REPORT. PT IS UPBEAT AND INTERACTIVE, APPEARS STEADY ON HER FEET, PARTICIPATING ENTHUSIASTICALLY
[2024-02-02 08:15] VITALS: BP 128/80
[2024-02-02] MEDS ORDERED: CIPROFLOXACIN2.5 M1 OTIC (08:15)
[2024-02-02 08:54] VITALS: BP 128/80
--- NOTE | 2024-02-02 09:12 | NUR ---
PT UP IN THE CHAIR TOLERATES 100% OF MORNING MEAL. HOSPITALIST IN TO SEE HER DC DISCUSSED ALL QUESTIONS ANSWERED. PT STATES SHE IS FEELING SO MUCH BETTER SHE STATES HER GAIT IS NO LONGER ALTERED SINCE P/T SHOWED HER WHAT SHE WAS DOING WRONG. DENIES NUMBNESS, WEAKNESS, OR OTHER IMPAIRMENT OF LOWER EXTREMISITES.
--- NOTE | 2024-02-02 10:20 | NUR ---
PT AGREES SHE IS READY TO GO HOME SHE DENIES CONCERNS OR QUESTIONS. VERBALIZES UNDERSTANDING OF DC INSTRUCTIONS. PT IS DRESSED TO LEAVE ENCOURAGED TO CONTINUE TO CALL FOR ASSIST WHEN MOVING AROUND THE ROOM WHILE WAITING FOR BROTHER TO ARRIVE
== END 2024-02-02 10:40 | disposition home or self-care (01) | DRG 554 ==
LOC: ED 12:18 → MS 12:20
PROVIDERS: Emergency Medicine; ADMIT Family Medicine; ATTEND Family Medicine
DX: M16.12 Unilateral primary osteoarthritis, left hip (principal); I42.9 Cardiomyopathy, unspecified; N17.9 Acute kidney failure, unspecified; H60.91 Unspecified otitis externa, right ear; R42 Dizziness and giddiness; R05.9 Cough, unspecified; I12.9 Hypertensive chronic kidney disease with stage 1 through stage 4 chronic kidney disease, or unspecified chronic kidney disease; N18.9 Chronic kidney disease, unspecified; I25.10 Atherosclerotic heart disease of native coronary artery without angina pectoris; M79.7 Fibromyalgia; M54.9 Dorsalgia, unspecified; M25.552 Pain in left hip; E86.1 Hypovolemia; E87.6 Hypokalemia; F43.10 Post-traumatic stress disorder, unspecified; E11.22 Type 2 diabetes mellitus with diabetic chronic kidney disease; F41.9 Anxiety disorder, unspecified; K21.9 Gastro-esophageal reflux disease without esophagitis; F17.210 Nicotine dependence, cigarettes, uncomplicated; Z98.890 Other specified postprocedural states; Z90.49 Acquired absence of other specified parts of digestive tract; Z88.0 Allergy status to penicillin; Z88.8 Allergy status to other drugs, medicaments and biological substances; I25.2 Old myocardial infarction; Z79.899 Other long term (current) drug therapy; Z79.51 Long term (current) use of inhaled steroids; Z79.84 Long term (current) use of oral hypoglycemic drugs; Z90.710 Acquired absence of both cervix and uterus
CPT/HCPCS: 36415; 70450; 70496; 70498; 70551; 71045; 72131; 72146; 72148; 73502; 80048; 80053; 83735; 84484; 85025; 85610; 87502; 93005; 93010; 96365; 97110; 97163; 97530; 99285-25; A9270; G0378; J2060; J3475; J7030; J7040; U0002